=== PATIENT | female | born 1965 | race Caucasian/White ===

== ENCOUNTER 2017-10-31 08:07 | Emergency (ER) | payer OTHER ==
[2017-10-31 08:28] VITALS: BP 191/112
[2017-10-31] MEDS ORDERED: Acetaminophen TAB* 325 MG PO ONE (08:28)
[2017-10-31] MEDS ORDERED: Ondansetron ODT TAB* 4 MG PO ONE (08:28)
[2017-10-31] MEDS ORDERED: Meclizine TAB* 12.5 MG PO ONE (08:28)
[2017-10-31] MEDS ORDERED: LORazepam TAB(*) 1 MG PO ONE (08:31)
--- NOTE | 2017-10-31 09:19 | UC ---
Tiara Jain Julia, scribed for Ramy Cardozo MD on 10/31/17 at 0813 . General HPI - HPI Summary HPI Summary: This patient is a 51 year old F presenting to [facility] with a chief complaint of temporal and occipital headache and dizziness since 10/21/17. Symptoms aggravated by lights. Patient reports diaphoresis, sinus infection, epitaxies, intermittent ear pain, and generalized weakness for the past two weeks. Pt reports vertigo like symptoms with sinus infections. Pt reports nausea with movement. Pt takes Meclizine for previous similar symptoms. Pt usually takes medication for HTN but has not since 10/21/17 due to vertigo like symptoms. - History of Current Complaint Stated Complaint: dizziness, and sinus congestion Hx Obtained From: Patient Onset/Duration: Lasting Days, Lasting Weeks Timing: Constant Pain Location at: head and sinuses Character: dizziness Aggravating: lights Associated Signs & Symptoms: Positive: Other - diaphoresis, sinus infection, epitaxies, intermittent ear pain, and generalized weakness Similar Episode/Dx as: vertigo - Allergy/Home Medications Allergies/Adverse Reactions: Allergies Allergy/AdvReac Type Severity Reaction Status Date / Time Sulfa Antibiotics Allergy Unknown Hives Verified 02/06/16 12:16 Iodine Allergy Swelling/SHORT Verified 02/06/16 12:16 OF BREATH Home Medications: Home Medications Propranolol TAB* [Inderal TAB*] 10/31/17 [History] PMH/Surg Hx/FS Hx/Imm Hx Cardiovascular History: Hypertension - Surgical History Surgical History: Yes Surgery Procedure, Year, and Place: GALLBLADDER ,CSECTION [id number],HYSTERECTOMY ,TUBAL; ear tubes; tonsilectomy - Family History Known Family History: Positive: Hypertension, Diabetes, Other - [place] - Social History Alcohol Use: Occasionally Substance Use Type: None Smoking Status (MU): Never Smoked Tobacco Have You Smoked in the Last Year: No Review of Systems Constitutional: Fatigue Skin: Other - diaphoresis ENT: Epistaxis, Ear Ache, Sinus Congestion - infection, Sinus Pain/Tenderness Neurological: Headache, Other - dizziness All Other Systems Reviewed And Are Negative: Yes Physical Exam Triage Information Reviewed: Yes Vital Signs: Initial Vital Signs Temp 97.6 F 10/31/17 08:12 Pulse 106 10/31/17 08:12 Resp 22 10/31/17 08:12 BP 191/112 10/31/17 08:12 Pulse Ox 98 10/31/17 08:12 Vital Signs Reviewed: Yes - Additional Comments General: well-appearing, moderate pain distress secondary to dizziness Skin: warm, color reflects adequate perfusion, dry Head: normal Eyes: EOMI, MARIBELL ENT: oral pharynx is moist, L serous otitis media Neck: supple, nontender Respiratory: CTA, breath sounds present Cardiovascular: Regular rhythm with tachycardia rate Abdomen: soft, nontender Bowel: present Musculoskeletal: normal, strength/ROM intact Neurological: normal, sensory/motor intact, A&O x3, no focal neurological deficit Psychological: affect/mood appropriate Diagnostics - EKG Cardiac Rate: Tachycardia Cardiac Rhythm: Sinus: Normal - 102 BPM at 8:33 Ectopy: None ST Segment: Normal Course/Dx - Course Course Of Treatment: INITIAL PRESENTATION WAS SINUSITIS AND VERTIGO THEREFORE, NO EKG TAKEN UPON ARRIVAL. EKG ORDERED AFTER EVAL WHICH INCLUDED HYPERTENSION TACHYCARDIA. DISCUSSED GOING TO THE ED FOR FURTEHR EVALUATION AND TREATMENT. POSTERIOR CVA IS IN THE DDX; THIS WAS DISCUSSED WITH THE PATIENT. SHE WILL GO TO THE ED BY AMBULANCE. - Differential Dx - Multi-Symptom Provider Diagnoses: DIZZINESS. HEADACHE. HYPERTENSION. LEFT SEROUS OTITIS MEDIA Discharge - Discharge Plan Condition: Fair Disposition: TRANS HIGHER LVL OF CARE FAC Patient Education Materials: Acute Headache (ED), Hypertension (ED), Dizziness (ED) Referrals: Ana Maria Cormier MD [Primary Care Provider] - Additional Instructions: GO DIRECTLY TO THE EMERGENCY DEPARTMENT FOR FURTHER EVALUATION AND CARE FOR YOUR HEADACHE, DIZZINESS AND HYPERTENSION. The documentation as recorded by the Tiara no Julia accurately reflects the service I personally performed and the decisions made by , Ramy Cardozo MD.
== END 2017-10-31 09:44 | disposition short-term general hospital (02) ==
LOC: UCEAST 08:07
DX: R42 Dizziness and giddiness (principal); R51 Headache; H65.92 Unspecified nonsuppurative otitis media, left ear; I10 Essential (primary) hypertension; Z88.2 Allergy status to sulfonamides
CPT/HCPCS: 93005; 99213; A9270-GY; G0463

== ENCOUNTER 2017-10-31 10:00 | Observation (INO) | payer OTHER ==
[2017-10-31] MEDS ORDERED: NS 0.9% 1000 ML* 1,000 ML IV ONE (10:29)
[2017-10-31] MEDS ORDERED: LORazepam INJ* 2 MG/ML 1 ML VIAL IV ONE (10:29)
[2017-10-31] MEDS ORDERED: Meclizine TAB* 12.5 MG PO ONE (10:29)
--- NOTE | 2017-10-31 11:13 | RAD ---
Indication: Dizziness. CT of the brain was performed without IV contrast. Ventricular structures are midline. No midline shift is noted. The extra-axial spaces are unremarkable. There is no evidence of intracranial mass or hemorrhage. No other high or low density lesions identified. Mastoid air cells and paranasal sinuses are unremarkable. IMPRESSION: There is no evidence of intracranial mass or hemorrhage noted.
[2017-10-31 11:27] LABS: ABS Basophils 0.1 10^3/ul (0-0.2); ABS Eosinophils 0.2 10^3/ul (0-0.6); ABS Lymphocytes 2.1 10^3/ul (1.0-4.8); ABS Monocytes 0.6 10^3/ul (0-0.8); ABS Neutrophils 5.6 10^3/ul (1.5-7.7); ABS Nucleated RBC 0 10^3/ul; Eosinophil % 2.3 % (0-6); Hematocrit 40 % (35-47); Hemoglobin 13.6 g/dl (12.0-16.0); Lymphocyte % 24.2 % (25-47); Mean Corpuscular HGB Conc 34 g/dl (31-36); Mean Corpuscular Hemoglobin 30 pg (27-31); Mean Corpuscular Volume 88 fL (80-97); Mean Platelet Volume 8 um3 (7.4-10.4); Nucleated Red Blood Cells % 0.1; Platelet Count 331 10^3/ul (150-450); Red Blood Count 4.56 10^6/ul (4.0-5.4); Red Cell Distribution Width 14 % (10.5-15); White Blood Count 8.6 10^3/ul (3.5-10.8)
[2017-10-31 11:44] LABS: EGFR Non-African American 70.5 (>60)
--- NOTE | 2017-10-31 12:35 | RAD ---
INDICATION: Dizziness COMPARISON: January 05, 2012 TECHNIQUE: PA and lateral dual-energy views were obtained. FINDINGS: Bones/Soft Tissues: There are no acute bony findings. Cardiomediastinal: The cardiomediastinal silhouette is normal. Lungs: There are no infiltrates. Pleura: There are no pleural effusions. Other: None IMPRESSION: NO ACTIVE DISEASE.
[2017-10-31] MEDS ORDERED: Ketorolac INJ* 30 MG/ML 1 ML VIAL IV PUSH ONE (12:43)
[2017-10-31] MEDS ORDERED: Amoxicillin/Clavulanate TAB* 875 MG PO ONE (12:43)
[2017-10-31] MEDS ORDERED: Diazepam SYRINGE* 5 MG/ML 2 ML SYRINGE (10 MG total) IV ONE (13:21)
[2017-10-31] MEDS ORDERED: Metoclopramide IV* 5 MG/ML 2 ML VIAL IV ONE (13:21)
[2017-10-31] MEDS ORDERED: diPHENhydraMINE IV* 50 MG in NS 0.9% 50 ML* 50 ML IVPB ONE (13:21)
[2017-10-31] MEDS ORDERED: Diazepam INJ (NF) 5 MG/ML 10 ML VIAL (50 MG TOTAL) IV ONE (14:00)
[2017-10-31] MEDS ORDERED: LORazepam TAB(*) 1 MG PO PRN (14:35)
[2017-10-31] MEDS ORDERED: hydrALAZINE IV* 20 MG/ML VIAL IV SLOW PU PRN (14:55)
[2017-10-31] MEDS ORDERED: Ondansetron TAB* 4 MG PO PRN (14:56)
[2017-10-31] MEDS: BuPROPion XL* 300 MG TAB.XL PO SCH (17:25)
--- NOTE | 2017-10-31 17:51 | ED ---
Dung Jain Angela, scribed for Mulugeta Brito MD on 10/31/17 at 1020 . Dizziness - HPI Summary HPI Summary: This pt is a 51 y/o female presenting to [facility] c/o dizziness and headache since 10/28/17. Pt reports associated symptoms of headache , nausea, epistaxis, feeling cold, diaphoresis, sinus pain, and mild SOB. She rates her headache 8/10 in severity and located on the bottom of her head. Pt denies fever, sore throat, rhinorrhea, chest pain. Pt reports she has not taken any antihypertensive medications because she was sick. - History Of Current Complaint Stated Complaint: DIZZINESS-SENT FROM Hx Obtained From: Patient Onset/Duration: Still Present Timing: Days Severity Currently: Severe - 8 Character: Dizzy Aggravating Factor(s): Nothing Alleviating Factor(s): Nothing Associated Signs And Symptoms: Positive: Nausea, Diaphoresis, SOB - mild, Chills , Other: - POS: headache, epistaxis, sinus pain.. Negative: Vomiting, Chest Pain, Fever - Allergies/Home Medications Allergies/Adverse Reactions: Allergies Allergy/AdvReac Type Severity Reaction Status Date / Time Sulfa Antibiotics Allergy Unknown Hives Verified 02/06/16 12:16 Iodine Allergy Swelling/SHORT Verified 02/06/16 12:16 OF BREATH Home Medications: Home Medications Beclomethasone Dipropionate (N [Qnasl] 80 mcg NASAL DAILY 10/31/17 [History Confirmed 10/31/17] BuPROPion XL* [Bupropion XL*] 300 mg PO DAILY 10/31/17 [History Confirmed ] Budesonide/Formote 160/4.5(NF) [Symbicort 160/4.5 (NF)] 2 puff INH BID 10/31/17 [History Confirmed 10/31/17] Montelukast Sodium TAB* [Singulair TAB*] 10 mg PO DAILY 10/31/17 [History Confirmed 10/31/17] Phentermine HCl [Adipex-P] 37.5 mg PO BID 10/31/17 [History Confirmed 10/31/17] PMH/Surg Hx/FS Hx/Imm Hx Endocrine/Hematology History: Denies: Hx Diabetes, Hx Thyroid Disease Cardiovascular History: Reports: Hx Hypertension Denies: Hx Pacemaker/ICD Respiratory History: Denies: Hx Asthma, Hx Chronic Obstructive Pulmonary Disease (COPD) GI History: Denies: Hx Ulcer History: Denies: Hx Renal Disease Sensory History: Denies: Hx Hearing Aid Psychiatric History: Reports: Hx Panic Disorder - PTSD/ANXIETY - Cancer History Hx Chemotherapy: No Hx Radiation Therapy: No - Surgical History Surgery Procedure, Year, and Place: GALLBLADDER ,CSECTION [id number],HYSTERECTOMY ,TUBAL; ear tubes; tonsilectomy - Immunization History Date of Tetanus Vaccine: pt states unsure Date of Influenza Vaccine: none Infectious Disease History: Denies: Hx Clostridium Difficile, Hx Hepatitis, Hx Human Immunodeficiency Virus (HIV), Hx of Known/Suspected MRSA, Hx Shingles, Hx Tuberculosis, Hx Known/ Suspected VRE, Hx Known/Suspected VRSA, History Other Infectious Disease, Traveled Outside the [place] in Last 30 Days - Family History Known Family History: Positive: Hypertension, Diabetes, Other - [place] - Social History Alcohol Use: Occasionally Substance Use Type: Reports: None Smoking Status (MU): Never Smoked Tobacco Have You Smoked in the Last Year: No Review of Systems Positive: Chills, Skin Diaphoresis. Negative: Fever ENT: Other - sinus tenderness Positive: Epistaxis. Negative: Sore Throat, Nasal Discharge Negative: Chest Pain Positive: Shortness Of Breath - mild Positive: Nausea. Negative: Vomiting Neurological: Other - POS: dizziness Positive: Headache All Other Systems Reviewed And Are Negative: Yes Physical Exam - Summary Physical Exam Summary: VITAL SIGNS: Reviewed. GENERAL: Patient is an obese female who is lying comfortable in the stretcher. Patient is not in any acute distress. HEAD AND FACE: No signs of trauma. No ecchymosis, hematomas or skull depressions. Pt has maxillary and ethmoid sinus tenderness. EYES: PERRLA, EOMI x 2, No injected conjunctiva, no nystagmus. No photophobia. EARS: Hearing grossly intact. Ear canals and tympanic membranes are within normal limits. MOUTH: Oropharynx within normal limits. NECK: Supple, trachea is midline, no adenopathy, no JVD, no carotid bruit, no c- spine tenderness, neck with full ROM. No meningeal signs, no Kernig's or brudzinskis signs. CHEST: Symmetric, no tenderness at palpation LUNGS: Clear to auscultation bilaterally. No wheezing or crackles. CVS: Regular rate and rhythm, S1 and S2 present, no murmurs or gallops appreciated. ABDOMEN: Soft, non-tender. No signs of distention. No rebound no guarding, and no masses palpated. Bowel sounds are normal. EXTREMITIES: FROM in all major joints, no edema, no cyanosis or clubbing. NEURO: Alert and oriented x 3. No acute neurological deficits. Speech is normal and follows commands. SKIN: Dry and warm GCS: 15 Triage Information Reviewed: Yes Vital Signs On Initial Exam: Initial Vitals Temp Pulse Resp BP Pulse Ox 99.1 F 96 12 164/116 98 10/31/17 10:19 10/31/17 10:19 10/31/17 10:19 10/31/17 10:19 10/31/17 10:19 Vital Signs Reviewed: Yes Diagnostics - Vital Signs Vital Signs Temp Pulse Resp BP Pulse Ox 10/31/17 15:28 98.6 F 90 16 141/82 95 10/31/17 15:00 82 141/82 97 10/31/17 14:30 100 150/92 96 10/31/17 14:26 98 143/88 97 10/31/17 14:00 95 97 10/31/17 13:58 22 10/31/17 13:41 118 162/102 10/31/17 13:33 105 162/102 96 10/31/17 13:32 82 98 10/31/17 13:30 138/82 10/31/17 13:00 154/91 10/31/17 12:46 159/88 10/31/17 11:50 93 97 10/31/17 11:30 15 139/67 10/31/17 11:19 14 10/31/17 11:00 94 16 145/79 98 10/31/17 10:30 91 12 150/124 97 10/31/17 10:27 95 15 146/126 97 10/31/17 10:24 95 11 97 10/31/17 10:19 99.1 F 96 12 164/116 98 - Laboratory Lab Results: Lab Results 10/31/17 10/31/17 10/31/17 Range/Units 11:12 11:12 11:12 WBC 8.6 (3.5-10.8) 10^3/ul RBC 4.56 (4.0-5.4) 10^6/ul Hgb 13.6 (12.0-16.0) g/dl Hct 40 (35-47) % MCV 88 (80-97) fL MCH 30 (27-31) pg MCHC 34 (31-36) g/dl RDW 14 (10.5-15) % Plt Count 331 (150-450) 10^3/ul MPV 8 (7.4-10.4) um3 Neut % (Auto) 65.3 (38-83) % Lymph % (Auto) 24.2 L (25-47) % Weber % (Auto) 7.3 (1-9) % Eos % (Auto) 2.3 (0-6) % Baso % (Auto) 0.9 (0-2) % Absolute Neuts (auto) 5.6 (1.5-7.7) 10^3/ul Absolute Lymphs (auto) 2.1 (1.0-4.8) 10^3/ul Absolute Monos (auto) 0.6 (0-0.8) 10^3/ul Absolute Eos (auto) 0.2 (0-0.6) 10^3/ul Absolute Basos (auto) 0.1 (0-0.2) 10^3/ul Absolute Nucleated RBC 0 10^3/ul Nucleated RBC % 0.1 Sodium 138 (133-145) mmol/L Potassium 3.9 (3.5-5.0) mmol/L Chloride 105 (101-111) mmol/L Carbon Dioxide 27 (22-32) mmol/L Anion Gap 6 (2-11) mmol/L BUN 12 (6-24) mg/dL Creatinine 0.85 (0.51-0.95) mg/dL Est GFR ( Amer) 90.7 (>60) Est GFR (Non-Af Amer) 70.5 (>60) BUN/Creatinine Ratio 14.1 (8-20) Glucose 97 (70-100) mg/dL Lactic Acid (0.5-2.0) mmol/L Calcium 10.0 (8.6-10.3) mg/dL Magnesium 2.0 (1.9-2.7) mg/dL Total Bilirubin 0.40 (0.2-1.0) mg/dL AST 29 (13-39) U/L ALT 40 (7-52) U/L Alkaline Phosphatase 87 (34-104) U/L Total Creatine Kinase 58 (10-223) U/L Troponin I 0.00 (<0.04) ng/mL C-Reactive Protein 7.50 H (< 5.00) mg/L B-Natriuretic Peptide 527 H ( - 100) pg/mL Total Protein 7.5 (6.4-8.9) g/dL Albumin 4.2 (3.2-5.2) g/dL Globulin 3.3 (2-4) g/dL Albumin/Globulin Ratio 1.3 (1-3) TSH 4.68 (0.34-5.60) mcIU/mL Serum Alcohol < 10 (<10) mg/dL Influenza A (Rapid) (Negative) Influenza B (Rapid) (Negative) 10/31/17 10/31/17 Range/Units 11:12 11:56 WBC (3.5-10.8) 10^3/ul RBC (4.0-5.4) 10^6/ul Hgb (12.0-16.0) g/dl Hct (35-47) % MCV (80-97) fL MCH (27-31) pg MCHC (31-36) g/dl RDW (10.5-15) % Plt Count (150-450) 10^3/ul MPV (7.4-10.4) um3 Neut % (Auto) (38-83) % Lymph % (Auto) (25-47) % Weber % (Auto) (1-9) % Eos % (Auto) (0-6) % Baso % (Auto) (0-2) % Absolute Neuts (auto) (1.5-7.7) 10^3/ul Absolute Lymphs (auto) (1.0-4.8) 10^3/ul Absolute Monos (auto) (0-0.8) 10^3/ul Absolute Eos (auto) (0-0.6) 10^3/ul Absolute Basos (auto) (0-0.2) 10^3/ul Absolute Nucleated RBC 10^3/ul Nucleated RBC % Sodium (133-145) mmol/L Potassium (3.5-5.0) mmol/L Chloride (101-111) mmol/L Carbon Dioxide (22-32) mmol/L Anion Gap (2-11) mmol/L BUN (6-24) mg/dL Creatinine (0.51-0.95) mg/dL Est GFR ( Amer) (>60) Est GFR (Non-Af Amer) (>60) BUN/Creatinine Ratio (8-20) Glucose (70-100) mg/dL Lactic Acid 0.8 (0.5-2.0) mmol/L Calcium (8.6-10.3) mg/dL Magnesium (1.9-2.7) mg/dL Total Bilirubin (0.2-1.0) mg/dL AST (13-39) U/L ALT (7-52) U/L Alkaline Phosphatase (34-104) U/L Total Creatine Kinase (10-223) U/L Troponin I (<0.04) ng/mL C-Reactive Protein (< 5.00) mg/L B-Natriuretic Peptide ( - 100) pg/mL Total Protein (6.4-8.9) g/dL Albumin (3.2-5.2) g/dL Globulin (2-4) g/dL Albumin/Globulin Ratio (1-3) TSH (0.34-5.60) mcIU/mL Serum Alcohol (<10) mg/dL Influenza A (Rapid) Negative (Negative) Influenza B (Rapid) Negative (Negative) Result Diagrams: 10/31/17 11:12 10/31/17 11:12 Lab Statement: Any lab studies that have been ordered have been reviewed, and results considered in the medical decision making process. - Radiology chest XR Xray Interpretation: No Acute Changes - IMPRESSION: No active disease. Dr. Brito has reviewed this radiology report. Radiology Interpretation Completed By: Radiologist - CT Brain CT CT Interpretation: No Acute Changes - IMPRESSION: there is no evidence of intracranial mass or hemorrhage noted. Dr. Brito has reviewed this radiology report. CT Interpretation Completed By: Radiologist - EKG 11:29 Cardiac Rate: NL EKG Rhythm: Sinus Rhythm - at 89 bpm EKG Interpretation: No ST elevation. Q wave in II and III. Re-Evaluation - Re-Evaluation First Eval Re-Evaluation Time: 12:40 Comment: I reviewed XR, CT, and lab results with the pt. Dizzy Course/Dx - Course Course Of Treatment: This pt is a 51 y/o female presenting to [facility] via EMS from [facility] c/o dizziness and headache since 10/28/17. Pt reports associated symptoms of headache, nausea, epistaxis, feeling cold, diaphoresis, sinus pain, and mild SOB. She rates her headache 8/10 in severity and located on the bottom of her head. Pt denies fever, sore throat, rhinorrhea, chest pain. Pt reports she has not taken any antihypertensive medications because she was sick. Test results without any significant abnormalities except for CRP of 7.5 and BNP of 527. Influenza A and B are negative. Chest XR is negative for acute pathology: Head CT shows there is no evidence of intracranial mass or hemorrhage noted. I believe her symptoms are secondary to sinusitis as well as her vertigo. The pt was given Ativan for her anxiety and her blood pressure normalized. I was about to discharge the pt home because she reported she felt better. As soon as she stood up next to her bed she felt very dizzy. She continues to have dizziness, which she describes as room spinning around her. Pt reports that when she lays down and closes her eyes, her dizziness improves. In the physical exam she has no nystagmus, therefore I believe the pt has peripheral dizziness. I additionally I gave the pt valium but her symptoms continued. I discussed the pt s case with Dr. Argueta, hospitalist, who has accepted the pt for admission. Pt is hemodynamically stable, alert and oriented x3. - Diagnoses Differential Diagnosis/HQI/PQRI: Benign Paroxysmal Positional Vertigo, CVA, Meniere's Disease, Transient Ischemic Attack, Vasovagal Reaction Provider Diagnoses: Intractable vertigo, Acute sinusitis - Provider Notifications Discussed Care Of Patient With: Eliu Argueta Time Discussed With Above Provider: 13:26 Instructed by Provider To: Other - I discussed pt care with Dr. Argueta, hospitalist, who has agreed to admit the pt. Discharge - Discharge Plan Condition: Stable Disposition: ADMITTED TO [facility] documentation as recorded by the Dung no Angela accurately reflects the service I personally performed and the decisions made by me, Mulugeta Brito MD.
--- NOTE | 2017-10-31 21:03 | HP ---
HISTORY AND PHYSICAL: DATE OF ADMISSION: 10/31/17 ADMITTING PROVIDER: Eliu Argueta MD PRIMARY CARE PROVIDER: Dr. Jena Cormier of [place]. CHIEF COMPLAINT: Dizziness with vertigo for 4 days, nausea, headaches, sinus pressure, inability to ambulate, hypertension. HISTORY OF PRESENT ILLNESS: Rima Suarez is a 51-year-old female with past medical history of hypertension, allergies, PTSD, anxiety, depression, also morbid obesity, who presents with 4 days of vertigo that seem to be getting better, has been taking meclizine for the last 3 days, but then it got worse again and presented to [facility] with blood pressures 199/112, additionally has had a headache, nausea, but no vomiting. Denies any current shortness of breath. Has been feeling hot, alternating with cold. Feels pressure in her front sinuses and bilateral ears. She had stopped taking her Ativan 1 mg b.i.d. versus t.i.d., which she takes for PTSD as she was afraid that it might make her feel worse. She upon presentation to the ED, had a CT head which was negative, chest x-ray which is negative, lab work which is relatively unremarkable except for a BNP which is 527. She got Valium, ketorolac , and Zofran in the ED, but continued to feel like she could not ambulate. She is being admitted for inability to ambulate in the setting of vertigo and recent hypertensive urgency. PAST MEDICAL HISTORY: Anxiety, depression, PTSD, hypertension, allergies versus ?asthma. MEDICATIONS: Include: 1. Propranolol 40 mg p.o. daily. 2. Singulair 10 mg p.o. daily. 3. Ativan 1 mg p.o. t.i.d. to b.i.d. p.r.n. 4. Beclomethasone dipropionate 80 mcg nasal daily. 5. Phentermine HCL 37.5 mg p.o. b.i.d. 6. Bupropion 300 mg p.o. daily. 7. Symbicort 2 puffs inhaled b.i.d. 8. Meclizine 25 mg p.o. t.i.d. ALLERGIES: SULFA ANTIBIOTICS gives hives, IODINE gives swelling and shortness of breath. FAMILY HISTORY: Maternal grandmother with breast cancer. Mother with lung cancer. Maternal grandfather with colon cancer. SOCIAL HISTORY: The patient helps to make medical devices. She is a never smoker, never drinker. No drug use. She wishes her son, Wily Hare and daughter Isamar Hare to be her medical surrogate decision makers. She is a full code. REVIEW OF SYSTEMS: The patient also attests to 2 weeks of frontal sinus and ear pressure pain and 3 weeks of bloody (scant, noticed with tissues) nose daily , but not perfused. She has a history of 2 cautery procedures for nose bleed in her childhood. PHYSICAL EXAMINATION GENERAL: The patient is slightly uncomfortable appearing in the hospital bed. VITAL SIGNS: Heart rate is 96; blood pressure here initially 164/116, before 199/112 at [facility], currently 150/92; satting 96% to 98% on room air; temperature 99.1. HEENT: Normocephalic, atraumatic. Pupils equal, round, reactive to light. No cervical lymphadenopathy. No oropharynx lesions. NECK: Supple. PULMONARY: Clear to auscultation bilaterally with no wheezing, rales, or rhonchi. CARDIOVASCULAR: Regular rate and rhythm. No murmurs, rubs, or gallops. ABDOMEN: Soft, nontender, nondistended. Morbidly obese. No rebound, no guarding. No Paul's sign. EXTREMITIES: Warm and well perfused. No peripheral edema. NEUROLOGICAL: Moving all extremities. Cranial nerves II through XII intact. SKIN: No lesions, no rashes. LABORATORY DATA: White count 8.6, hemoglobin 13.6, hematocrit 40, platelets 331,000. Sodium 138, potassium 3.9, chloride 105, carbon dioxide 27, glucose 97 , magnesium 2.0, AST 29, ALT 40, alk phos 87, BNP 527, CRP 7.50, TSH 4.68. Influenza swabs A and B both negative. Troponin 0.00. IMAGING: Chest x-ray, no acute process. CT of head, no acute process. EKG with Q-wave in 3, borderline Q-wave in 2, unchanged. Poor R-wave progression. No ST changes. ASSESSMENT AND PLAN: Rima Suarez is a 51-year-old female with past medical history of anxiety, depression, posttraumatic stress disorder, nosebleeds, vertigo, who is presenting with hypertensive urgency 199/112 at urgent care. 4 days of vertigo and inability to ambulate despite therapies in the ED which included meclizine, Valium and ketorolac and Benadryl. The patient will be admitted to observation status to monitor her blood pressure, continue meclizine , get Physical Therapy to work with her. Unable in ER to do a full David-Hallpike maneuver test. No current evidence of nystagmus on exam. Continue Reglan p.o. p.r.n. for nausea. Continue her Ativan which she notably stopped over the weekend that may be contributing to some of her worsening feelings given her chronic use of 1 b.i.d. to t.i.d. We will continue her home propranolol 40 mg daily, add hydralazine 10 mg IV q.2 hours p.r.n. for blood pressures above 180. Continue her bupropion at 300 mg for depression and her inhalers. She is a full code and medical surrogates are son, Wily Hare and Isamar Hare, her daughter. She can eat a regular diet. [id number]/[facility] #: [id number] GEOVANNI
[2017-10-31] MEDS: Meclizine TAB* 12.5 MG PO SCH (21:33)
[2017-10-31] MEDS: PHENTERMINE HCL 37.5 MG PO SCH (21:34)
[2017-11-01] MEDS: Meclizine TAB* 12.5 MG PO SCH ×2 (06:26→14:15)
[2017-11-01] MEDS: PHENTERMINE HCL 37.5 MG PO SCH (07:40)
[2017-11-01 07:43] VITALS: BP 138/72
[2017-11-01] MEDS ORDERED: Montelukast Sodium TAB* 10 MG PO SCH (09:00)
[2017-11-01] MEDS: BuPROPion XL* 300 MG TAB.XL PO SCH (09:33)
--- NOTE | 2017-11-02 04:11 | DS ---
DISCHARGE SUMMARY: DATE OF ADMISSION: 10/31/17 DATE OF DISCHARGE: 11/01/17 ADMITTING AND ATTENDING PHYSICIAN: Eliu Argueta MD PRIMARY CARE PROVIDER: Dr. Jena Cormier of [place]. CHIEF COMPLAINT: Dizziness with vertigo x4 days, nausea, headaches, sinus pressure, ear pain, hypertension. PRINCIPAL DIAGNOSES: 1. Otitis media. 2. Hypertensive urgency. 3. Nose bleed. 4. Vertigo. HISTORY OF PRESENT ILLNESS AND HOSPITAL COURSE: Rima Suarez is a 51-year-old female with past medical history of hypertension, allergies, PTSD, anxiety, depression, morbid obesity, nose bleeds as a child, status post 2 cautery procedures, who presents with 4 days of vertigo, had been taking her home meclizine for 3 days with some stabilization but then she states it got worse again. She presented to [facility] and was noted have blood pressures 199/ 112. This was associated with headache, nausea, with no vomiting, nose bleeds for 3 weeks, though not profuse. She had a history of what she describes as weekly sinus infections a year prior and had followed up with ENT/asthma specialist and got an imaging about 2 months ago. Upon presentation to the ED, she had CT head which was negative, chest x-ray which was negative, lab work which was unremarkable except for a BNP, which is 527. She received Valium, ketorolac, and Zofran and had gotten her meclizine prior but still did not feel safe for ambulation. She was admitted to observation status for vertigo, inability to ambulate, recent hypertensive urgency. She saw Physical Therapy next day, was continued on her Ativan 1 mg p.o. b.i.d. to t.i.d., which she had stopped over the weekend along with Zofran p.r.n. Her symptoms, though not resolving, were improved and she was able to ambulate with physical therapy. On evaluation of her bilateral ears, she had slight effusion in the inferior aspect bilaterally. No bleed on CT brain. There was no mention of any abnormality of the mastoid and paranasal sinuses. She is being discharged with followup with her primary care, Dr. Cormier, and also recommended to follow up with Ear, Nose, and Throat for her nose bleeds. Notably, her hemoglobin on admission was 13.6. Vital signs were stable and she describes what sounds like not a very profuse nose bleed with trace bleeding when she blows her nose. MEDICATIONS: Include: 1. Augmentin 875 mg p.o. b.i.d. for 5 days. 2. QNASL 80 mcg nasal daily. 3. Symbicort 2 puffs inhaled b.i.d. 4. Bupropion 300 mg p.o. daily. 5. Ativan 1 mg p.o. b.i.d. to t.i.d. p.r.n. 6. Meclizine 25 mg p.o. t.i.d. 7. Singulair 10 mg p.o. daily. 8. Phentermine HCL (Adipex-P) 37.5 mg p.o. b.i.d. 9. Propranolol 40 mg p.o. daily. ACTIVITY LEVEL: No restrictions. DISCHARGE DIET: No restrictions. FOLLOWUP: Please follow up with Dr. Jena Cormier on 11/04/17 at 03:30 p.m. and with her Ear, Nose, and Throat specialist if nose bleeds continue. TIME SPENT ON DISCHARGE: 30 minutes. [id number]/CPS #: [id number] MTDD
== END 2017-11-01 15:00 | disposition home or self-care (01) ==
LOC: ED 10:00 → MED 15:42
PROVIDERS: ADMIT Internal Medicine; ATTEND Internal Medicine
DX: H66.90 Otitis media, unspecified, unspecified ear (principal); R42 Dizziness and giddiness; R11.0 Nausea; R51 Headache; H92.09 Otalgia, unspecified ear; I16.0 Hypertensive urgency; J01.90 Acute sinusitis, unspecified; R06.02 Shortness of breath; R04.0 Epistaxis
CPT/HCPCS: 36415; 70450; 71046; 80053; 80320; 82550; 83605; 83735; 83880; 84443; 84484; 85025; 86140; 87502; 93005; 99285; A9270-GY; G0378; G0480; J1200; J1885; J2060; J2765; J3360

== ENCOUNTER 2019-05-14 07:30 | Emergency (ER) | payer OTHER ==
--- NOTE | 2019-05-14 07:35 | UC ---
Abdominal Pain Female HPI - HPI Summary HPI Summary: 53-year-old woman comes in with a chief complaint of right-sided abdominal and flank pain. Started 3 this morning. Pain is severe. Patient is nauseous and she's been vomiting. She tried a bowel movement but she couldn't. She is unable to make the pain worse or better. She is diaphoretic. - History of Current Complaint Stated Complaint: ABD/BACK PAIN Time Seen by Provider: 05/14/19 07:34 Allergies/Adverse Reactions: Allergies Allergy/AdvReac Type Severity Reaction Status Date / Time Sulfa (Sulfonamide Allergy Severe Unknown Verified 05/14/19 07:39 Antibiotics) Reaction Details iodine Allergy Unknown Verified 05/14/19 07:39 Reaction Details iodixanol [From Visipaque] Allergy Unknown Verified 01/24/19 15:51 Reaction Details PMH/Surg Hx/FS Hx/Imm Hx Previously Healthy: Yes Cardiovascular History: Hypertension - Surgical History Surgical History: Yes Surgery Procedure, Year, and Place: GALLBLADDER ,CSECTION [id number],HYSTERECTOMY ,TUBAL; ear tubes; tonsilectomy - Family History Known Family History: Positive: Hypertension, Diabetes, Other - [place] - Social History Alcohol Use: Occasionally Substance Use Type: None Smoking Status (MU): Never Smoked Tobacco Have You Smoked in the Last Year: No Review of Systems All Other Systems Reviewed And Are Negative: Yes Constitutional: Positive: Other - see hpi Skin: Positive: Negative Eyes: Positive: Negative ENT: Positive: Negative Respiratory: Positive: Negative Cardiovascular: Positive: Negative Gastrointestinal: Positive: Abdominal Pain, Vomiting, Nausea Motor: Positive: Negative Neurovascular: Positive: Negative Musculoskeletal: Positive: Negative Neurological: Positive: Negative Psychological: Positive: Negative Is Patient Immunocompromised?: No Physical Exam Triage Information Reviewed: Yes Appearance: Well-Nourished, Ill-Appearing - mild, Pain Distress - moderate/ severe Vital Signs Reviewed: Yes Eye Exam: Normal Eyes: Positive: Conjunctiva Clear Neck: Positive: Supple Respiratory: Positive: Lungs clear, Normal breath sounds, No respiratory distress Abdomen Description: Positive: Other: - tender rt Bowel Sounds: Positive: Present Musculoskeletal: Positive: Strength Intact, ROM Intact Neurological: Positive: Alert, Muscle Tone Normal Psychological: Positive: Age Appropriate Behavior Skin Exam: Normal Abd Pain Female Course/Dx - Course Course Of Treatment: Due to the severity of the pain I recommended transport to the emergency department by ambulance. The patient declined transfer by ambulance and her sister is here who will take her by POV. - Differential Dx/Diagnosis Provider Diagnosis: Right sided abdominal pain, Right flank pain Discharge - Sign-Out/Discharge Documenting (check all that apply): Patient Departure All imaging exams completed and their final reports reviewed: No Studies - Discharge Plan Condition: Stable Disposition: HOME-RECOMMEND TO ED Referrals: Ana Maria Cormier MD [Primary Care Provider] - - Billing Disposition and Condition Condition: STABLE Disposition: Home-Recommend to ED
--- OUTSIDE RECORDS SUMMARY | 2019-05-14 07:36 | XMS REPORT | Continuity of Care Document ---
:1965 External Reference #:[id number] Author Name Nicolle Rivera Care Team Providers Name Role Phone Ana Maria Cormier MD Primary Care Physician Unavailable Payers Date Identification Numbers Payment Provider Subscriber Policy Number: [id number] [facility] Candy Suarez Group Number: [id number] [address] [address] PayID: [id number] [place] [address] Expires: 2016 Policy Number: [id number] [facility] MARY KAY Suarez PayID: [id number] [address] [address] [place] [address] Family History Date Family Member(s) Observation Comments General Chronic Obstructive Pulmonary Disease (COPD) General Cancer Mother due to Lung Cancer () Siblings 1 Social History Type Date Description Comments Sex Unknown Marital Status Lives With Son Occupation Build medical equipment Tobacco Use Start: Unknown Never Smoked Cigarettes Smoking Status Reviewed: 04/19/19 Never Smoked Cigarettes ETOH Use Rarely consumes alcohol Recreational Drug Use Never Used Drugs Tobacco Use Start: Unknown Patient has never smoked Exercise Type/Frequency Does not exercise Allergies, Adverse Reactions, Alerts Active Allergies Reaction Severity Comments Date Sulfa 01/29/2019 IV Contrast 01/29/2019 Medications Active Medications SIG Qnty Indications Ordering Provider Date Fluoxetine HCL Take One Capsule Unknown 20mg By Mouth Twice A Capsules Day Montelukast Sodium Take One Tablet By Unknown 10mg Mouth One Time Tablets Daily Propranolol HCL Take One Tablet By Unknown 40mg Mouth Every Day Tablets Desloratadine Take One Tablet By Unknown 5mg Tablets Mouth Every Day Loratadine once a day for Unknown 10mg Capsules allergies as needed Lorazepam 1 tab upto 3x a Unknown 1mg Tablets day Black Cohosh 540mg 1x day Unknown Vital Signs Date Vital Result Comment 04/19/2019 2:13pm Height 70 inches 5'10" Heart Rate 82 /min BP Systolic 126 mmHg BP Diastolic 82 mmHg Respiratory Rate 18 /min O2 % BldC Oximetry 94 % 01/29/2019 7:37am Height 70 inches 5'10" Heart Rate 94 /min BP Systolic Sitting 124 mmHg Lue large cuff BP Diastolic Sitting 82 mmHg Lue large cuff Respiratory Rate 16 /min O2 % BldC Oximetry 97 % Neck Circumference in inches 15.75 Results Test Date Facility Test Result H/L Range Note Laboratory test 02/01/2019 [facility] Surgical SEE RESULT [address] [place] [address] [phone] 1 SEE RESULT BELOW Name: CANDY SUAREZ Natalia : [address]: Sixto Cox DO Acct: [id number] Unit: [id number] AGE: 53 Location: ENDO Re02/01/19 SEX: F Status: DEP REF SPEC: [id number] OSMAN: 02/01/19-[address]: Sixto Cox DO REQ: [id number] RECD: 02/01/19925 STATUS: JORY ARNDT DR: Ana Maria Hawkins MD _ ORDERED: LEVEL 4 FINAL DIAGNOSIS Distal esophagus, biopsy: -- Gastroesophageal transition zone mucosa with inflamed polypoid fragment of gastric Cardia-type mucosa with extensive goblet cell/intestinal metaplasia. -- Mild reflux esophagitis noted (up to 5 eosinophil/HPF). -- No dysplasia identified. 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 Signed by and Reported on: Marcelo Evans MD 12/19 1211 END OF REPORT DEPARTMENT OF PATHOLOGY, [address] [place] [address] Marcelo Evans M.D. Director [facility] # [id number] Procedures Date Code Description Status 02/06/2019 15790 Sleep Study Unattended,HRT Rate,Oxygen Sat,Resp Completed Effort/Airflow 09/03/2008 01045 EKG, Interpretation Only Completed Encounters Type Date Location Provider Dx Diagnosis Office Visit 01/29/2019 [facility] Jenni Farr MD R06.83 Snoring 8:00a [facility] R53.83 Other fatigue E66.9 Obesity, unspecified Plan of Treatment Future Appointment(s):06/14/2019 3:00 pm - Yelena Bustos NP at [facility]04/19/2019 - Yelena Bustos NPG47.33 Obstructive sleep apnea (adult) (pediatric)New Orders:[facility], Ordered: 04/19/19Follow up:6 weeksRecommendations:You are being set up with CPAP for your sleep apnea through [facility] . They will call you to set up an appointment to get fit for a mask and roller picker your machine. If you have difficulty with your equipment, or need to replace your mask or hoses, please contact your homecare agency. If you have any further questions, please call the [facility] at [phone] Ifyou have any sleepiness while driving you MUST avoid operating a vehicle or machinery.E66.9 Obesity, unspecifiedRecommendations:Keep up the good work with your weight loss efforts! It is important to bring your CPAP with you [facility] when you go for your surgery so you can use it when you sleep. In general, using CPAP will help you feel more well rested, which will help with your weight loss. When you are less tired, you will have more energy to exercise and make good food choices. Many people are able to lessen theseverity of their sleep apnea or resolve it entirely with weight loss. Once you are at your goal weight, we can re-test you and see if you still have sleep apnea. You should continue using your CPAP until you have a test that shows your sleep apnea has resolved.R53.83 Other fatigue
[2019-05-14 07:38] VITALS: BP 000/00
== END 2019-05-14 07:55 | disposition home health service (06) ==
LOC: UCEAST 07:30
DX: R10.9 Unspecified abdominal pain (principal); R11.2 Nausea with vomiting, unspecified; I10 Essential (primary) hypertension; Z88.2 Allergy status to sulfonamides
CPT/HCPCS: 99212; G0463

== ENCOUNTER 2019-05-14 07:54 | Emergency (ER) | payer OTHER ==
--- NOTE | 2019-05-14 08:15 | ED ---
Abdominal Pain/Female - HPI Summary HPI Summary: Pt is a 53 y/o F presenting to the ED with a chief complaint of R lower abd pain that radiates to her back. She states the pain became severe and constant at 0300, and she rates it at 15/10. She reports vomiting. She denies fevers, chills, or hematuria. - History of Current Complaint Chief Complaint: EDFlankPain Stated Complaint: POSSIBLE KIDNEY STONE Time Seen by Provider: 05/14/19 08:00 Hx Obtained From: Patient Onset/Duration: Gradual Onset, Lasting Hours, Still Present Timing: Hours Severity Initially: Moderate Severity Currently: Severe Pain Intensity: 10 Pain Scale Used: 0-10 Numeric Location: Discrete At: RLQ Radiates: Yes Radiates to: Back Aggravating Factor(s): Nothing Alleviating Factor(s): Nothing Associated Signs and Symptoms: Positive: Vomiting. Negative: Fever, Urinary Symptoms Allergies/Adverse Reactions: Allergies Allergy/AdvReac Type Severity Reaction Status Date / Time Sulfa (Sulfonamide Allergy Severe Unknown Verified 05/14/19 07:39 Antibiotics) Reaction Details iodine Allergy Unknown Verified 05/14/19 07:39 Reaction Details iodixanol [From Visipaque] Allergy Unknown Verified 01/24/19 15:51 Reaction Details PMH/Surg Hx/FS Hx/Imm Hx Previously Healthy: Yes Endocrine/Hematology History: Denies: Hx Diabetes, Hx Thyroid Disease Cardiovascular History: Reports: Hx Hypertension Denies: Hx Pacemaker/ICD Respiratory History: Reports: Hx Seasonal Allergies Denies: Hx Asthma, Hx Chronic Obstructive Pulmonary Disease (COPD) GI History: Reports: Hx Gall Bladder Disease - gall bladder removed evangelista 2007 Denies: Hx Gastroesophageal Reflux Disease, Hx Ulcer History: Denies: Hx Kidney Stones, Hx Renal Disease Musculoskeletal History: Reports: Hx Arthritis - back and thumb Sensory History: Reports: Hx Contacts or Glasses Denies: Hx Hearing Aid Opthamlomology History: Reports: Hx Contacts or Glasses Neurological History: Reports: Hx Migraine, Other Neuro Impairments/Disorders - vertigo Psychiatric History: Reports: Hx Anxiety, Hx Depression, Hx Panic Disorder - PTSD/ANXIETY, Hx Post Traumatic Stress Disorder - Cancer History Hx Chemotherapy: No Hx Radiation Therapy: No - Surgical History Surgery Procedure, Year, and Place: GALLBLADDER ,CSECTION [id number],HYSTERECTOMY ,TUBAL; ear tubes; tonsilectomy Hx Anesthesia Reactions: No - Immunization History Date of Tetanus Vaccine: pt states unsure Date of Influenza Vaccine: none Infectious Disease History: No Infectious Disease History: Denies: Hx Clostridium Difficile, Hx Hepatitis, Hx Human Immunodeficiency Virus (HIV), Hx of Known/Suspected MRSA, Hx Shingles, Hx Tuberculosis, Hx Known/ Suspected VRE, Hx Known/Suspected VRSA, History Other Infectious Disease, Traveled Outside the [place] in Last 30 Days - Family History Known Family History: Positive: Hypertension, Diabetes, Other - [place] - Social History Alcohol Use: Occasionally Hx Substance Use: No Substance Use Type: Reports: None Hx Tobacco Use: No Smoking Status (MU): Never Smoked Tobacco Have You Smoked in the Last Year: No Review of Systems Negative: Fever, Chills Positive: Abdominal Pain, Vomiting Negative: hematuria Positive: Myalgia - back pain All Other Systems Reviewed And Are Negative: Yes Physical Exam - Summary Physical Exam Summary: GENERAL: Patient is a well-developed and nourished F who is lying comfortable in the stretcher. Patient is not in any acute respiratory distress. HEAD AND FACE: Normocephalic EYES: PERRLA, EOMI x 2. EARS: Hearing grossly intact. MOUTH: Oropharynx within normal limits. NECK: Supple, trachea is midline, no adenopathy, no JVD, no carotid bruit. CHEST: Symmetric, no tenderness at palpation LUNGS: Clear to auscultation bilaterally. No wheezing or crackles. CVS: Regular rate and rhythm, S1 and S2 present, no murmurs or gallops appreciated. ABDOMEN: Minimal tenderness to palpation in the R lower abd. Bowel sounds are normal. No abnormal abdominal pulsations. EXTREMITIES: Full ROM in all major joints, no edema, no cyanosis or clubbing. NEURO: Alert and oriented x 3. No acute neurological deficits. Speech is normal and follows commands. SKIN: Dry and warm Triage Information Reviewed: Yes Vital Signs On Initial Exam: Initial Vitals Temp Pulse Resp BP Pulse Ox 96.1 F 105 22 203/119 98 05/14/19 07:56 05/14/19 07:56 05/14/19 07:56 05/14/19 07:56 05/14/19 07:56 Vital Signs Reviewed: Yes Diagnostics - Vital Signs Vital Signs Temp Pulse Resp BP Pulse Ox 05/14/19 07:56 96.1 F 105 22 203/119 98 - Laboratory Result Diagrams: 05/14/19 08:19 05/14/19 08:19 Lab Statement: Any lab studies that have been ordered have been reviewed, and results considered in the medical decision making process. - CT CT a/p CT Interpretation Completed By: Radiologist Summary of CT Findings: 1. Moderate RIGHT hydroureteronephrosis. Punctate 1 mm stone in the dependent portion of the urinary bladder may reflect a recently passed stone or a stone at the far distal margin of the ureteral vesicular junction. 2. Follow-up pancreatic mass protocol CT suggested to further characterize potential mass lesion at the head of the pancreas. ED physician has reviewed this report. Abdominal Pain Fem Course/Dx - Course Course Of Treatment: Pt is a 53 y/o F presenting to the ED with a chief complaint of constant R lower abd pain that radiates to her back, rated at 15/ 10. She reports vomiting and denies fevers, chills, and hematuria. Her physical exam is nml aside from minimal tenderness in the R lower abd. Pts lab results show WBC of 11.3, APTT of 38.4, and CO2 of 21. Her UA shows 2+ blood , 3+ RBC, and present squamous epithelial cells. In the ED course, the pt was given Zofran, Toradol, Morphine, and fluids. CT a/p shows: 1. Moderate RIGHT hydroureteronephrosis. Punctate 1 mm stone in the dependent portion of the urinary bladder may reflect a recently passed stone or a stone at the far distal margin of the ureteral vesicular junction. 2. Follow-up pancreatic mass protocol CT suggested to further characterize potential mass lesion at the head of the pancreas. I spoke with Dr. Salvador about the pt's present illness. I explained that the next step would be to get a mass protocol CT with contrast, but the patient is allergic to iodine. We discussed that the other option would be to get an MRI done, but this can be done urgently, and ordered by her PCP. I discussed this plan with the patient who agrees to follow up with urology about her kidney stones as well as her PCP to get an MRI done to further evaluate her pancreatic lesion. Her dx will include kidney stones and pancreatic lesion. She is hemodynamically stable and safe for discharge. Strict return precautions given. - Diagnoses Provider Diagnoses: Kidney stones, Pancreatic lesion Discharge - Sign-Out/Discharge Documenting (check all that apply): Patient Departure Patient Received Moderate/Deep Sedation with Procedure: No - Discharge Plan Condition: Stable Disposition: HOME Patient Education Materials: Kidney Stones (ED) Forms: *Work Release Referrals: Ana Maria Cormier MD [Primary Care Provider] - Brian Brown MD [Medical Doctor] - Additional Instructions: Please follow up with your primary care provider. You need to have an MRI done mass protocol to be ordered by your primary care provider to evaluate possible lesions on your pancreas. Please also follow up with Dr. Brown of urology about your kidney stones. Return to the emergency department with any new or worsening symptoms. - Billing Disposition and Condition Condition: STABLE Disposition: Home - Attestation Statements Document Initiated by Scribe: Yes Documenting Scribe: Colette Nicole Provider For Whom Clay is Documenting (Include Credential): Sania Ley MD. Scribe Attestation: Colette Jain, scribed for Sania Ley MD. on 05/14/19 at 1246. Scribe Documentation Reviewed: Yes Provider Attestation: The documentation as recorded by the scribe, Colette Nicole accurately reflects the service I personally performed and the decisions made by , David Ley MD. Status of Scribe Document: Viewed Consult Consult: [id number] - I spoke with Dr. Salvador about the pt's present illness. I explained that the next step would be to get a mass protocol CT with contrast, but the patient is allergic to iodine. We discussed that the other option would be to get an MRI done, but this can be done urgently, and ordered by her PCP.
[2019-05-14] MEDS ORDERED: Ondansetron INJ* 2 MG/ML VIAL IV ONE (08:16)
[2019-05-14] MEDS ORDERED: Ketorolac INJ* 30 MG/ML 1 ML VIAL IV PUSH ONE (08:16)
[2019-05-14] MEDS ORDERED: NS 0.9% 1000 ML** 1,000 ML IV ONE (08:16)
[2019-05-14 08:26] LABS: ABS Basophils 0.1 10^3/ul (0-0.2); ABS Eosinophils 0.3 10^3/ul (0-0.6); ABS Lymphocytes 2.1 10^3/ul (1.0-4.8); ABS Monocytes 0.7 10^3/ul (0-0.8); ABS Neutrophils 8.2 10^3/ul (1.5-7.7); Eosinophil % 2.3 %; Hematocrit 39 % (35-47); Hemoglobin 12.9 g/dL (12.0-16.0); Lymphocyte % 18.8 %; Mean Corpuscular HGB Conc 33 g/dL (31-36); Mean Corpuscular Hemoglobin 30 pg (27-31); Mean Corpuscular Volume 90 fL (80-97); Mean Platelet Volume 7.9 fL (7.4-10.4); Platelet Count 336 10^3/uL (150-450); Red Blood Count 4.32 10^6 /uL (3.70-4.87); Red Cell Distribution Width 14 % (10-15); White Blood Count 11.3 10^3/uL (3.5-10.8)
[2019-05-14 08:37] LABS: Activated Partial Thrombo Time 38.4 seconds (26.0-38.0); INR 0.86 (0.82-1.09)
[2019-05-14 08:45] LABS: Albumin 4.2 g/dL (3.2-5.2); Albumin/Globulin Ratio 1.4 (1-3); BUN/Creatinine Ratio 10.9 (8-20); C Reactive Protein 5.04 mg/L (<8.01); Calcium 9.6 mg/dL (8.6-10.3); EGFR African American 77.3 (>60); EGFR Non-African American 63.9 (>60); Potassium 3.8 mmol/L (3.5-5.0); Total Bilirubin 0.3 mg/dL (0.2-1.0); Total Protein 7.2 g/dL (6.4-8.9)
[2019-05-14] MEDS ORDERED: Morphine 4 MG/ML VIAL (1 ml) 4 MG/ML VIAL IV ONE (08:47)
[2019-05-14 09:39] LABS: Urine Appearance Cloudy; Urine Bacteria Absent (Absent); Urine Bilirubin Negative (Negative); Urine Blood 2+ (Negative); Urine Color Yellow; Urine Glucose Negative (Negative); Urine Ketones Negative (Negative); Urine Nitrite Negative (Negative); Urine Protein Negative (Negative); Urine Red Blood Cell 3+(>10/hpf) (Absent); Urine Squamous Epithelial Cell Present (Absent); Urine Urobilinogen Negative (Negative); Urine White Blood Cell Trace(0-5/hpf) (Absent)
[2019-05-14 10:30] VITALS: BP 136/62
== END 2019-05-14 10:29 | disposition home or self-care (01) ==
LOC: ED 07:54
DX: N20.0 Calculus of kidney (principal); K86.9 Disease of pancreas, unspecified; R10.84 Generalized abdominal pain; I10 Essential (primary) hypertension; R11.10 Vomiting, unspecified; M54.9 Dorsalgia, unspecified; Z90.49 Acquired absence of other specified parts of digestive tract
CPT/HCPCS: 36415; 74176; 80053; 81003; 81015; 83605; 83690; 85025; 85610; 85730; 86140; 87086; 96374; 96375; 99283; J1885; J2270; J2405

== ENCOUNTER 2019-08-19 09:03 | Emergency (ER) | payer OTHER ==
--- OUTSIDE RECORDS SUMMARY | 2019-08-19 09:25 | XMS REPORT | Continuity of Care Document ---
:1965 External Reference #:[id number] Author Name Ana Maria Cormier M.D. Address [address] [place] [id number] Problems Active Problems Provider Date Dyspnea Ana Maria Cormier M.D. Onset: 12/20/2011 Acute exacerbation of chronic obstructive Ana Maria Cormier M.D. Onset: 2011 airways disease Malaise and fatigue Ana Maria Cormier M.D. Onset: 12/20/2011 Anxiety state Ana Maria Cormier M.D. Onset: 12/20/2011 Benign essential hypertension Manolo Lieberman [employer] Onset: 12/20/2011 Overweight Manolo Lieberman [employer] Onset: 12/20/2011 Morbid obesity Manolo Lieberman [employer] Onset: 12/20/2011 Depressive disorder Manolo Lieberman [employer] Onset: 12/20/2011 Degeneration of lumbar intervertebral disc Manolo Lieberman [employer] Onset: 12/20/2011 Low back pain DAMION Manzano Onset: 12/20/2011 Myalgia & Myositis Unspecified DAMION Manzano Onset: 12/20/2011 Peptic reflux disease Ana Maria Cormier M.D. Onset: 12/20/2011 Asthma without status asthmaticus Ana Maria Cormier M.D. Onset: 10/26/2012 Dysfunction of eustachian tube Ana Maria Cormier M.D. Onset: 10/26/2012 Type II diabetes mellitus uncontrolled Ana Maria Cormier M.D. Onset: 2012 Osteoarthritis Ana Maria Cormier M.D. Onset: 10/26/2012 Allergic rhinitis Ana Maria Cormier M.D. Onset: 10/26/2012 Indigestion Ana Maria Cormier M.D. Onset: 10/26/2012 Mixed hyperlipidemia Ana Maria Cormier M.D. Onset: 10/26/2012 Hypothyroidism Ana Maria Cormier M.D. Onset: 01/29/2014 Posttraumatic stress disorder Ana Maria Cormier M.D. Onset: 01/29/2014 Insomnia Ana Maria Cormier M.D. Onset: 02/04/2015 Palpitations Ana Maria Cormier M.D. Onset: 02/04/2015 Essential hypertension Manolo Lieberman [employer] Onset: 08/20/2015 Degeneration of lumbosacral intervertebral Ana Maria Cormier M.D. Onset: 09/08 disc Other specified disorders of Eustachian tube, Ana Maria Cormier M.D. Onset: bilateral Social History Type Date Description Comments Sex Unknown Tobacco Use Start: Unknown Never Smoked Cigarettes ETOH Use Rarely consumes alcohol Tobacco Use Start: Unknown Patient has never smoked Allergies, Adverse Reactions, Alerts Active Allergies Reaction Severity Comments Date Sulfa Antibiotics 02/08/2012 Medications Active Medications SIG Qnty Indications Ordering Date Provider Pantoprazole Sodium 1 by mouth every 90tabs K21.0 Ana Maria Cormier, 2018 40mg day M.D. Tablets DR Batemanatarufina 1 tab by mouth 90tabs J30.9 Ana Maria Cormier, 07/06/2019 10mg Tablets every day M.D. Triamcinolone apply to affected 15gm S50.862A Ana Maria Cormier, 07/06/2019 Acetonide area twice a day M.D. 0.5% Cream as needed L20.9 Buspirone HCL 1 tab by mouth 180tabs F41.9 Ana Maria Cormier, 05/24/2019 15mg twice a day M.D. Tablets Lorazepam 1/2-1 tab by mouth 60tabs F43.12 Ana Maria Cormier, 04/03/2019 1mg Tablets three times a day M.D. as needed G47.00 F41.9 Hydroxyzine HCL take 1 to 2 tablets 180tabs H66.93 Ana Maria Cormier, 2018 25mg every night as M.D. Tablets needed Vitamin D3 1 cap by mouth 12caps E55.9 CasaAna Maria amador, 12/14/2018 [id number] every week M.D. Capsules Fluoxetine HCL 1 tab by mouth 180caps F41.9 CasaAna Maria amador, 01/23/2018 20mg twice a day every M.D. Capsules evening F33.9 Lidoderm apply 1 patch to 90units M25.511 Ana Maria Cormier, 07/14/2017 5% Patches affected arae every M.D. day M54.5 Epipen 2-Travon inject as directed 1units Z91.030 Ana Maria Cormier, 05/12/2016 0.3mg/0.3ML M.D. Solution Auto-Inject Propranolol HCL 1 tab by mouth 90tabs I10 Ana Maria Cormier, 02/04/2015 40mg every day M.D. Tablets Singulair take one tablet by 90tabs J45.909 Ana Maria Cormier, 04/21/2012 10mg Tablets mouth one time M.D. daily J30.89 History Medications Amoxicillin/Clavulanate 1 tab by 30tabs H66.93 Ana Maria Cormier 04/02/2019 - Potassium mouth twice M., M.D. 05/03/2019 875-125mg Tablets a day Diflucan 1 by mouth 14tabs H66.93 CasaAna Maria amador 04/02/2019 - 100mg Tablets every day x M., M.D. 05/03/2019 1 week then skip week then restart. Medications Administered in Office Medication SIG Qnty Indications Ordering Provider Date Depo Provera Injection DAMION Manzano 03/23/2004 Injection Injection Ana Maria Cormier M.D. 03/23/2004 Therapeutic/Prophylactic/Diagos tic Injection Immunizations CPT Code Status Date Vaccine Lot # [id number] Given 03/24/2015 TDaP [id number] Given 10/26/2012 Flu Vaccine [id number] Given 08/08/1997 DT Pediatric Vital Signs Date Vital Result Comment 07/06/2019 9:37am BP Systolic 118 mmHg BP Diastolic 66 mmHg Height 68 inches 5'8" Heart Rate 82 /min Respiratory Rate 16 /min 06/01/2019 10:18am BP Systolic 136 mmHg BP Diastolic 98 mmHg Height 68 inches 5'8" Weight 285.00 lb BMI (Body Mass Index) 43.3 kg/m2 Heart Rate 92 /min Respiratory Rate 16 /min Results Test Date Facility Test Result H/L Range Note Comp Metabolic Panel 05/14/2019 [facility] Sodium 142 mmol/L Normal 135-145 Potassium 3.8 mmol/L Normal 3.5-5.0 Chloride 111 mmol/L Normal 101-111 Co2 Carbon Dioxide 21 mmol/L Low 22-32 Anion Gap 10 mmol/L Normal 2-11 Glucose 114 mg/dL High 70-100 Blood Urea Nitrogen 10 mg/dL Normal 6-24 Creatinine 0.92 mg/dL Normal 0.51-0.95 BUN/Creatinine Ratio 10.9 Normal 8-20 Calcium 9.6 mg/dL Normal 8.6-10.3 Total Protein 7.2 g/dL Normal 6.4-8.9 Albumin 4.2 g/dL Normal 3.2-5.2 Globulin 3.0 g/dL Normal 2-4 Albumin/Globulin Ratio 1.4 Normal 1-3 Total Bilirubin 0.30 mg/dL Normal 0.2-1.0 Alkaline Phosphatase 70 U/L Normal 34-104 Alt 16 U/L Normal 7-52 Ast 20 U/L Normal 13-39 Egfr Non- 63.9 >60 Egfr 77.3 >60 1 Laboratory test finding 05/14/2019 [facility] Lipase 32 U/L Normal 11.0-82.0 C Reactive Protein 5.04 mg/L Normal <8.01 Lactic Acid 1.6 mmol/L Normal 0.5-2.0 2 CBC Auto Diff 05/14/2019 [facility] White Blood 11.3 10^3/uL High 3.5 -10.8 Count Red Blood Count 4.32 10^6/uL Normal 3.70-4.87 Hemoglobin 12.9 g/dL Normal 12.0-16.0 Hematocrit 39 % Normal 35-47 Mean Corpuscular Volume 90 fL Normal 80-97 Mean Corpuscular Hemoglobin 30 pg Normal 27-31 Mean Corpuscular HGB Conc 33 g/dL Normal 31-36 Red Cell Distribution Width 14 % Normal 10-15 Platelet Count 336 10^3/uL Normal 150-450 Mean Platelet Volume 7.9 fL Normal 7.4-10.4 Abs Neutrophils 8.2 10^3/uL High 1.5-7.7 Abs Lymphocytes 2.1 10^3/uL Normal 1.0-4.8 Abs Monocytes 0.7 10^3/uL Normal 0-0.8 Abs Eosinophils 0.3 10^3/uL Normal 0-0.6 Abs Basophils 0.1 10^3/uL Normal 0-0.2 Abs Nucleated RBC 0.0 10^3/uL Granulocyte % 72.1 % Lymphocyte % 18.8 % Monocyte % 5.9 % Eosinophil % 2.3 % Basophil % 0.9 % Nucleated Red Blood Cells % 0.0 Inr/Protime 05/14/2019 [facility] Inr 0.86 Normal 0.82-1.09 3 Laboratory test 05/14/2019 [facility] Partial 38.4 seconds High 26.0- 38.0 finding Thrombo Time PTT Urinalysis 05/14/2019 [facility] Urine Color Yellow Profile Urine Appearance Cloudy Urine Specific [place] 1.020 Normal 1.010-1.030 Urine pH 5.0 Normal 5-9 Urine Urobilinogen Negative Negative Urine Ketones Negative Negative Urine Protein Negative Negative Urine Leukocytes Negative Negative Urine Blood 2+ Abnormal Negative Urine Nitrite Negative Negative Urine Bilirubin Negative Negative Urine Glucose Negative Negative Urine White Blood Cell Trace(0-5/hpf) Absent Urine Red Blood Cell 3+(>10/hpf) Abnormal Absent Urine Bacteria Absent Absent Urine Squamous Epithelial Cell Present Abnormal Absent Urine Culture And 05/14/2019 [facility] Urine Culture SEE RESULT 4 Sensitivities BELOW Laboratory test 02/01/2019 [facility] Clotest SEE RESULT 5 finding BELOW Laboratory test 02/01/2019 [facility] Surgical SEE RESULT 6 finding Interface Order BELOW 1 Because ethnic data is not always readily available, this report includes an eGFR for both -Americans and non- Americans. The National Kidney Disease Education Program (NKDEP) does not endorse the use of the MDRD equation for patients that are not between the ages of 18 and 70, are , have extremes of body size, muscle mass, or nutritional status, or are non- or non-. According to the National Kidney Foundation, irrespective of diagnosis, the stage of the disease is based on the level of kidney function: Stage Description GFR(mL/min/1.73 m(2)) 1 Kidney damage with normal or decreased GFR 90 2 Kidney damage with mild decrease in GFR 60-89 3 Moderate decrease in GFR 30-59 4 Severe decrease in GFR 15-29 5 Kidney failure <15 (or dialysis) 2 [place] Severe Sepsis and Septic Shock Management Bundle Measure requires all lactic acids initially measuring >2.0 mmol/L be repeated. 3 Standard intensity warfarin therapeutic range: 2.0-3.0 High intensity warfarin therapeutic range: 2.5-3.5 4 SEE RESULT BELOW Name: CANDY SUAREZ : [address]: David eLy MD Acct: [id number] Unit: [id number] AGE: 53 Location: ED Re05/14/19 SEX: F Status: DEP ER SPEC: [id number] OSMAN: 05/14/[address]: Sania Ley MD REQ: [id number] RECD: 05/14/19 STATUS: COMP [facility] DR: Ana Maria Cormier MD _ SOURCE: URINE SPDESC: ORDERED: Urine Culture Procedure Result Reported Site Urine Culture Final 05/15/19- 1259 ML No growth of clinically significant organisms * ML - Main Lab . END OF REPORT DEPARTMENT OF PATHOLOGY, [address] [place] [address] Marcelo Evans M.D. Director [facility] # [id number] 5 SEE RESULT BELOW Name: CANDY SUAREZ : [address]: Sixto Cox DO Acct: [id number] Unit: [id number] AGE: 53 Location: ENDO Re02/01/19 SEX: F Status: REG REF SPEC: [id number] OSMAN: 02/01/19 [facility] DR: Sixto Cox DO REQ: [id number] RECD: 02/01/19 STATUS: MARAH ARNDT DR: Ana Maria Cormier MD _ SOURCE: GAS ANTRUM SPDESC: ORDERED: Clotest Procedure Result Reported Site Clotest Final 02/02/19- 908 ML Clotest Positive * ML - Main Lab . END OF REPORT DEPARTMENT OF PATHOLOGY, [address] [place] [address] Marcelo Evans M.D. Director [facility] # [id number] 6 SEE RESULT BELOW Name: CANDY SUAREZ Natalia : [address]: Sixto Cox DO Acct: [id number] Unit: [id number] AGE: 53 Location: ENDO Re02/01/19 SEX: F Status: DEP REF SPEC: [id number] OSMAN: 02/01/19 [facility] DR: Sixto Cox DO REQ: [id number] RECD: 02/01/19384 STATUS: JORY ARNDT DR: Ana Maria Hawkins [...] 1211 END OF REPORT DEPARTMENT OF PATHOLOGY, [address] [place] [address] Marcelo Evans M.D. Director [facility] # [id number] Procedures Date Code Description Status 10/03/2011 [id number] Colonoscopy Completed 10/03/2011 [id number] Mammogram Completed Medical Devices Description No Information Available Encounters Type Date Location Provider Dx Diagnosis Office Visit 07/06/2019 Ana Maria Gonsalves, E78.2 Mixed hyperlipidemia 9:30a M.D. I10 Essential (primary) hypertension M51.37 Other intervertebral disc degeneration, lumbosacral region E11.65 Type 2 diabetes mellitus with hyperglycemia F33.9 Major depressive disorder, recurrent, unspecified F43.12 Post-traumatic stress disorder, chronic E66.01 Morbid (severe) obesity due to excess calories Z91.030 Bee allergy status J45.909 Unspecified asthma, uncomplicated M75.111 Incomplete rotatr-cuff tear/ruptr of r shoulder, not trauma M25.511 Pain in right shoulder M15.9 Polyosteoarthritis, unspecified K21.0 Gastro-esophageal reflux disease with esophagitis M25.559 Pain in unspecified hip H69.83 Other specified disorders of Eustachian tube, bilateral K30 Functional dyspepsia E03.9 Hypothyroidism, unspecified H81.13 Benign paroxysmal vertigo, bilateral G47.00 Insomnia, unspecified J30.9 Allergic rhinitis, unspecified L20.9 Atopic dermatitis, unspecified H92.03 Otalgia, bilateral M54.5 Low back pain G47.33 Obstructive sleep apnea (adult) (pediatric) J32.9 Chronic sinusitis, unspecified N95.1 Menopausal and female climacteric states R53.83 Other fatigue F41.9 Anxiety disorder, unspecified H69.90 Unspecified Eustachian tube disorder, unspecified ear E55.9 Vitamin D deficiency, unspecified N20.0 Calculus of kidney 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 S50.862A Insect bite (nonvenomous) of left forearm, initial encounter Office Visit 06/01/2019 11:15a [facility] Ana Maria Cormier E78.2 Mixed hyperlipidemia Colleen Lanza I10 Essential (primary) hypertension M51.37 Other intervertebral disc degeneration, lumbosacral region E11.65 Type 2 diabetes mellitus with hyperglycemia F33.9 Major depressive disorder, recurrent, unspecified F43.12 Post-traumatic stress disorder, chronic E66.01 Morbid (severe) obesity due to excess calories Z91.030 Bee allergy status J45.909 Unspecified asthma, uncomplicated M75.111 Incomplete rotatr-cuff tear/ruptr of r shoulder, not trauma M25.511 Pain in right shoulder M15.9 Polyosteoarthritis, unspecified K21.0 Gastro-esophageal reflux disease with esophagitis M25.559 Pain in unspecified hip H69.83 Other specified disorders of Eustachian tube, bilateral K30 Functional dyspepsia E03.9 Hypothyroidism, unspecified H81.13 Benign paroxysmal vertigo, bilateral G47.00 Insomnia, unspecified J30.9 Allergic rhinitis, unspecified L20.9 Atopic dermatitis, unspecified H92.03 Otalgia, bilateral M54.5 Low back pain G47.33 Obstructive sleep apnea (adult) (pediatric) J32.9 Chronic sinusitis, unspecified N95.1 Menopausal and female climacteric states R53.83 Other fatigue F41.9 Anxiety disorder, unspecified H69.90 Unspecified Eustachian tube disorder, unspecified ear E55.9 Vitamin D deficiency, unspecified N20.0 Calculus of kidney 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 Office Visit 05/24/2019 4:30p [facility] Ana Maria Cormier E78.2 Mixed hyperlipidemia Colleen Lanza I10 Essential (primary) hypertension M51.37 Other intervertebral disc degeneration, lumbosacral region E11.65 Type 2 diabetes mellitus with hyperglycemia F33.9 Major depressive disorder, recurrent, unspecified F43.12 Post-traumatic stress disorder, chronic E66.01 Morbid (severe) obesity due to excess calories Z91.030 Bee allergy status J45.909 Unspecified asthma, uncomplicated M75.111 Incomplete rotatr-cuff tear/ruptr of r shoulder, not trauma M25.511 Pain in right shoulder M15.9 Polyosteoarthritis, unspecified K21.0 Gastro-esophageal reflux disease with esophagitis M25.559 Pain in unspecified hip H69.83 Other specified disorders of Eustachian tube, bilateral K30 Functional dyspepsia E03.9 Hypothyroidism, unspecified H81.13 Benign paroxysmal vertigo, bilateral G47.00 Insomnia, unspecified J30.9 Allergic rhinitis, unspecified L20.9 Atopic dermatitis, unspecified H92.03 Otalgia, bilateral M54.5 Low back pain G47.33 Obstructive sleep apnea (adult) (pediatric) J32.9 Chronic sinusitis, unspecified N95.1 Menopausal and female climacteric states R53.83 Other fatigue F41.9 Anxiety disorder, unspecified H69.90 Unspecified Eustachian tube disorder, unspecified ear E55.9 Vitamin D deficiency, unspecified N20.0 Calculus of kidney 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 I10 Essential (primary) hypertension M51.37 Other intervertebral disc degeneration, lumbosacral region E11.65 Type 2 diabetes mellitus with hyperglycemia F33.9 Major depressive disorder, recurrent, unspecified F43.12 Post-traumatic stress disorder, chronic E66.01 Morbid (severe) obesity due to excess calories Z91.030 Bee allergy status J45.909 Unspecified asthma, uncomplicated M75.111 Incomplete rotatr-cuff tear/ruptr of r shoulder, not trauma M25.511 Pain in right shoulder M15.9 Polyosteoarthritis, unspecified K21.0 Gastro-esophageal reflux disease with esophagitis M25.559 Pain in unspecified hip H69.83 Other specified disorders of Eustachian tube, bilateral K30 Functional dyspepsia E03.9 Hypothyroidism, unspecified H81.13 Benign paroxysmal vertigo, bilateral G47.00 Insomnia, unspecified J30.9 Allergic rhinitis, unspecified L20.9 Atopic dermatitis, unspecified H92.03 Otalgia, bilateral M54.5 Low back pain G47.33 Obstructive sleep apnea (adult) (pediatric) J32.9 Chronic sinusitis, unspecified N95.1 Menopausal and female climacteric states R53.83 Other fatigue F41.9 Anxiety disorder, unspecified H69.90 Unspecified Eustachian tube disorder, unspecified ear R06.02 Shortness of breath R05 Cough E55.9 Vitamin D deficiency, unspecified H66.93 Otitis media, unspecified, bilateral Assessments Date Code Description Provider 07/06/2019 E78.2 Mixed hyperlipidemia Ana Maria Cormier M.D. 07/06/2019 I10 Essential (primary) hypertension Ana Maria Cormier M.D. 07/06/2019 M51.37 Other intervertebral disc degeneration, Ana Maria Cormier M.D. lumbosacral region 07/06/2019 E11.65 Type 2 diabetes mellitus with hyperglycemia Ana Maria Cormier M.D. 07/06/2019 F33.9 Major depressive disorder, recurrent, Ana Maria Cormier M.D. unspecified 07/06/2019 F43.12 Post-traumatic stress disorder, chronic Ana Maria Cormier M.D. 07/06/2019 E66.01 Morbid (severe) obesity due to excess Ana Maria Cormier M.D. calories 07/06/2019 Z91.030 Bee allergy status Ana Maria Cormier M.D. 07/06/2019 J45.909 Unspecified asthma, uncomplicated Ana Maria Cormier M.D. 07/06/2019 M75.111 Incomplete rotator cuff tear or rupture of Ana Maria Cormier M.D. right shoulder, not specified as traumatic 07/06/2019 M25.511 Pain in right shoulder Ana Maria Cormier M.D. 07/06/2019 M15.9 Polyosteoarthritis, unspecified Ana Maria Cormier M.D. 07/06/2019 K21.0 Gastro-esophageal reflux disease with Ana Maria Cormier M.D. esophagitis 07/06/2019 M25.559 Pain in unspecified hip Ana Maria Cormier M.D. 07/06/2019 H69.83 Other specified disorders of Eustachian Ana Maria Cormier M.D. tube, bilateral 07/06/2019 K30 Functional dyspepsia Ana Maria Cormier M.D. 07/06/2019 E03.9 Hypothyroidism, unspecified Ana Maria Cormier M.D. 07/06/2019 H81.13 Benign paroxysmal vertigo, bilateral Ana Maria Cormier M.D. 07/06/2019 G47.00 Insomnia, unspecified Ana Maria Cormier M.D. 07/06/2019 J30.9 Allergic rhinitis, unspecified Ana Maria Cormier M.D. 07/06/2019 L20.9 Atopic dermatitis, unspecified Ana Maria Cormier M.D. 07/06/2019 H92.03 Otalgia, bilateral Ana Maria Cormier M.D. 07/06/2019 M54.5 Low back pain Ana Maria Cormier M.D. 07/06/2019 G47.33 Obstructive sleep apnea (adult) (pediatric) Ana Maria Cormier M.D. 07/06/2019 J32.9 Chronic sinusitis, unspecified Ana Maria Cormier M.D. 07/06/2019 N95.1 Menopausal and female climacteric states Ana Maria Cormier M.D. 07/06/2019 R53.83 Other fatigue Ana Maria Cormier M.D. 07/06/2019 F41.9 Anxiety disorder, unspecified Ana Maria Cormier M.D. 07/06/2019 H69.90 Unspecified Eustachian tube disorder, Ana Maria Cormier M.D. unspecified ear 07/06/2019 E55.9 Vitamin D deficiency, unspecified Ana Maria Cormier M.D. 07/06/2019 N20.0 Calculus of kidney Ana Maria Cormier M.D. 07/06/2019 D37.8 Neoplasm of uncertain behavior of other Ana Maria Cormier M.D. specified digestive organs 07/06/2019 S50.862A Insect bite (nonvenomous) of left forearm, Ana Maria Cormier M.D. initial encounter 06/01/2019 E78.2 Mixed hyperlipidemia Ana Maria Cormier M.D. 06/01/2019 I10 Essential (primary) hypertension Ana Maria Cormier M.D. 06/01/2019 M51.37 Other intervertebral disc degeneration, Ana Maria Cormier M.D. lumbosacral region 06/01/2019 E11.65 Type 2 diabetes mellitus with hyperglycemia Ana Maria Cormier M.D. 06/01/2019 F33.9 Major depressive disorder, recurrent, Ana Maria Cormier M.D. unspecified 06/01/2019 F43.12 Post-traumatic stress disorder, chronic Ana Maria Cormier M.D. 06/01/2019 E66.01 Morbid (severe) obesity due to excess Ana Maria Cormier M.D. calories 06/01/2019 Z91.030 Bee allergy status Ana Maria Cormier M.D. 06/01/2019 J45.909 Unspecified asthma, uncomplicated Ana Maria Cormier M.D. 06/01/2019 M75.111 Incomplete rotator cuff tear or rupture of Ana Maria Cormier M.D. right shoulder, n 06/01/2019 M25.511 Pain in right shoulder Ana Maria Cormier M.D. 06/01/2019 M15.9 Polyosteoarthritis, unspecified Ana Maria Cormier M.D. 06/01/2019 K21.0 Gastro-esophageal reflux disease with Ana Maria Cormier M.D. esophagitis 06/01/2019 M25.559 Pain in unspecified hip Ana Maria Cormier M.D. 06/01/2019 H69.83 Other specified disorders of Eustachian Ana Maria Cormier M.D. tube, bilateral 06/01/2019 K30 Functional dyspepsia Ana Maria Cormier M.D. 06/01/2019 E03.9 Hypothyroidism, unspecified Ana Maria Cormier M.D. 06/01/2019 H81.13 Benign paroxysmal vertigo, bilateral Ana Maria Cormier M.D. 06/01/2019 G47.00 Insomnia, unspecified Ana Maria Cormier M.D. 06/01/2019 J30.9 Allergic rhinitis, unspecified Ana Maria Cormier M.D. 06/01/2019 L20.9 Atopic dermatitis, unspecified Ana Maria Cormier M.D. 06/01/2019 H92.03 Otalgia, bilateral Ana Maria Cormier M.D. 06/01/2019 M54.5 Low back pain Ana Maria Cormier M.D. 06/01/2019 G47.33 Obstructive sleep apnea (adult) (pediatric) Ana Maria Cormier M.D. 06/01/2019 J32.9 Chronic sinusitis, unspecified Ana Maria Cormier M.D. 06/01/2019 N95.1 Menopausal and female climacteric states Ana Maria Cormier M.D. 06/01/2019 R53.83 Other fatigue Ana Maria Cormier M.D. 06/01/2019 F41.9 Anxiety disorder, unspecified Ana Maria Cormier M.D. 06/01/2019 H69.90 Unspecified Eustachian tube disorder, Ana Maria Cormier M.D. unspecified ear 06/01/2019 E55.9 Vitamin D deficiency, unspecified Ana Maria Cormier M.D. 06/01/2019 N20.0 Calculus of kidney Ana Maria Cormier M.D. 06/01/2019 D37.8 Neoplasm of uncertain behavior of other Ana Maria Cormier M.D. specified digestive organs 05/24/2019 E78.2 Mixed hyperlipidemia Ana Maria Cormier M.D. 05/24/2019 I10 Essential (primary) hypertension Ana Maria Cormier M.D. 05/24/2019 M51.37 Other intervertebral disc degeneration, Ana Maria Cormier M.D. lumbosacral region 05/24/2019 E11.65 Type 2 diabetes mellitus with hyperglycemia Ana Maria Cormier M.D. 05/24/2019 F33.9 Major depressive disorder, recurrent, Ana Maria Cormier M.D. unspecified 05/24/2019 F43.12 Post-traumatic stress disorder, chronic Ana Maria Cormier M.D. 05/24/2019 E66.01 Morbid (severe) obesity due to excess Ana Maria Cormier M.D. calories 05/24/2019 Z91.030 Bee allergy status Ana Maria Cormier M.D. 05/24/2019 J45.909 Unspecified asthma, uncomplicated Ana Maria Cormier M.D. 05/24/2019 M75.111 Incomplete rotator cuff tear or rupture of Ana Maria Cormier M.D. right shoulder, n 05/24/2019 M25.511 Pain in right shoulder Ana Maria Cormier M.D. 05/24/2019 M15.9 Polyosteoarthritis, unspecified Ana Maria Cormier M.D. 05/24/2019 K21.0 Gastro-esophageal reflux disease with Ana Maria Cormier M.D. esophagitis 05/24/2019 M25.559 Pain in unspecified hip Ana Maria Cormier M.D. 05/24/2019 H69.83 Other specified disorders of Eustachian Ana Maria Cormier M.D. tube, bilateral 05/24/2019 K30 Functional dyspepsia Ana Maria Cormier M.D. 05/24/2019 E03.9 Hypothyroidism, unspecified Ana Maria Cormier M.D. 05/24/2019 H81.13 Benign paroxysmal vertigo, bilateral Ana Maria Cormier M.D. 05/24/2019 G47.00 Insomnia, unspecified Ana Maria Cormier M.D. 05/24/2019 J30.9 Allergic rhinitis, unspecified Ana Maria Cormier M.D. 05/24/2019 L20.9 Atopic dermatitis, unspecified Ana Maria Cormier M.D. 05/24/2019 H92.03 Otalgia, bilateral Ana Maria Cormier M.D. 05/24/2019 M54.5 Low back pain Ana Maria Cormier M.D. 05/24/2019 G47.33 Obstructive sleep apnea (adult) (pediatric) Ana Maria Cormier M.D. 05/24/2019 J32.9 Chronic sinusitis, unspecified Ana Maria Cormier M.D. 05/24/2019 N95.1 Menopausal and female climacteric states Ana Maria Cormier M.D. 05/24/2019 R53.83 Other fatigue Ana Maria Cormier M.D. 05/24/2019 F41.9 Anxiety disorder, unspecified Ana Maria Cormier M.D. 05/24/2019 H69.90 Unspecified Eustachian tube disorder, Ana Maria Cormier M.D. unspecified ear 05/24/2019 E55.9 Vitamin D deficiency, unspecified Ana Maria Cormier M.D. 05/24/2019 N20.0 Calculus of kidney Ana Maria Cormier M.D. 05/24/2019 D37.8 Neoplasm of uncertain behavior of other Ana Maria Cormier M.D. specified digestive organs 05/22/2019 E78.2 Mixed hyperlipidemia Ana Maria Cormier M.D. 05/22/2019 I10 Essential (primary) hypertension Ana Maria Cormier M.D. 05/22/2019 M51.37 Other intervertebral disc degeneration, Ana Maria Cormier M.D. lumbosacral region 05/22/2019 E11.65 Type 2 diabetes mellitus with hyperglycemia Ana Maria Cormier M.D. 05/22/2019 F33.9 Major depressive disorder, recurrent, Ana Maria Cormier M.D. unspecified 05/22/2019 F43.12 Post-traumatic stress disorder, chronic Ana Maria Cormier M.D. 05/22/2019 E66.01 Morbid (severe) obesity due to excess Ana Maria Cormier M.D. calories 05/22/2019 Z91.030 Bee allergy status Ana Maria Cormier M.D. 05/22/2019 J45.909 Unspecified asthma, uncomplicated Ana Maria Cormier M.D. 05/22/2019 M75.111 Incomplete rotator cuff tear or rupture of Ana Maria Cormier M.D. right shoulder, n 05/22/2019 M25.511 Pain in right shoulder Ana Maria Cormier M.D. 05/22/2019 M15.9 Polyosteoarthritis, unspecified Ana Maria Cormier M.D. 05/22/2019 K21.0 Gastro-esophageal reflux disease with Ana Maria Cormier M.D. esophagitis 05/22/2019 M25.559 Pain in unspecified hip Ana Maria Cormier M.D. 05/22/2019 H69.83 Other specified disorders of Eustachian Ana Maria Cormier M.D. tube, bilateral 05/22/2019 K30 Functional dyspepsia Ana Maria Cormier M.D. 05/22/2019 E03.9 Hypothyroidism, unspecified Ana Maria Cormier M.D. 05/22/2019 H81.13 Benign paroxysmal vertigo, bilateral Ana Maria Cormier M.D. 05/22/2019 G47.00 Insomnia, unspecified Ana Maria Cormier M.D. 05/22/2019 J30.9 Allergic rhinitis, unspecified Ana Maria Cormier M.D. 05/22/2019 L20.9 Atopic dermatitis, unspecified Ana Maria Cormier M.D. 05/22/2019 H92.03 Otalgia, bilateral Ana Maria Cormier M.D. 05/22/2019 M54.5 Low back pain Ana Maria Cormier M.D. 05/22/2019 G47.33 Obstructive sleep apnea (adult) (pediatric) Ana Maria Cormier M.D. 05/22/2019 J32.9 Chronic sinusitis, unspecified Ana Maria Cormier M.D. 05/22/2019 N95.1 Menopausal and female climacteric states Ana Maria Cormier M.D. 05/22/2019 R53.83 Other fatigue Ana Maria Cormier M.D. 05/22/2019 F41.9 Anxiety disorder, unspecified Ana Maria Cormier M.D. 05/22/2019 H69.90 Unspecified Eustachian tube disorder, Ana Maria Cormier M.D. unspecified ear 05/22/2019 E55.9 Vitamin D deficiency, unspecified Ana Maria Cormier M.D. 04/02/2019 E78.2 Mixed hyperlipidemia Ramy Isbell N.PChristian 04/02/2019 I10 Essential (primary) hypertension Ramy Isbell, N.P. 04/02/2019 M51.37 Other intervertebral disc degeneration, Ramy Isbell N.P. lumbosacral region 04/02/2019 E11.65 Type 2 diabetes mellitus with hyperglycemia Ramy Isbell N.P. 04/02/2019 F33.9 Major depressive disorder, recurrent, Ramy Isbell N.P. unspecified 04/02/2019 F43.12 Post-traumatic stress disorder, chronic Ramy Isbell N.P. 04/02/2019 E66.01 Morbid (severe) obesity due to excess Ramy Isbell, N.P. calories 04/02/2019 Z91.030 Bee allergy status Ramy Isbell N.P. 04/02/2019 J45.909 Unspecified asthma, uncomplicated Ramy Isbell, N.P. 04/02/2019 M75.111 Incomplete rotator cuff tear or rupture of Ramy Isbell N.PChristian right shoulder, n 04/02/2019 M25.511 Pain in right shoulder Ramy Isbell N.P. 04/02/2019 M15.9 Polyosteoarthritis, unspecified Ramy Isbell, N.P. 04/02/2019 K21.0 Gastro-esophageal reflux disease with Ramy Isbell N.PChristian esophagitis 04/02/2019 M25.559 Pain in unspecified hip Ramy Isbell, N.P. 04/02/2019 H69.83 Other specified disorders of Eustachian Ramy Isbell, N.P. tube, bilateral 04/02/2019 K30 Functional dyspepsia Ramy Isbell N.P. 04/02/2019 E03.9 Hypothyroidism, unspecified Ramy Isbell, N.P. 04/02/2019 H81.13 Benign paroxysmal vertigo, bilateral Ramy Isbell, N.P. 04/02/2019 G47.00 Insomnia, unspecified Ramy Isbell, N.P. 04/02/2019 J30.9 Allergic rhinitis, unspecified Ramy Isbell, N.P. 04/02/2019 L20.9 Atopic dermatitis, unspecified Ramy Isbell, N.P. 04/02/2019 H92.03 Otalgia, bilateral Ramy Isbell, N.P. 04/02/2019 M54.5 Low back pain Ramy Isbell N.P. 04/02/2019 G47.33 Obstructive sleep apnea (adult) (pediatric) Ramy Isbell N.P. 04/02/2019 J32.9 Chronic sinusitis, unspecified Ramy Isbell N.P. 04/02/2019 N95.1 Menopausal and female climacteric states Ramy Isbell N.P. 04/02/2019 R53.83 Other fatigue Ramy Isbell N.P. 04/02/2019 F41.9 Anxiety disorder, unspecified Ramy Isbell N.P. 04/02/2019 H69.90 Unspecified Eustachian tube disorder, Ramy Isbell, N.P. unspecified ear 04/02/2019 R06.02 Shortness of breath Ramy Isbell N.P. 04/02/2019 R05 Cough Ramy Isbell N.P. 04/02/2019 E55.9 Vitamin D deficiency, unspecified Ramy Isbell N.P. 04/02/2019 H66.93 Otitis media, unspecified, bilateral Ramy Isbell N.P. Plan of Treatment 07/06/2019 - Ana Maria Cormier M.D.E78.2 Mixed hyperlipidemiaComments:DIET REVIEWED CONTINUE DIETWT LOSSF/U LAB FBWI10 Essential (primary) hypertensionComments:CHECK BP TIW ( PRN)F/U LABDIET AND FLUID COUNSELING LOW SODIUM DIETWT LOSSF/U LABM51.37 Other intervertebral disc degeneration, lumbosacral regionComments:EXERCISE/HEAT /MESSAGEAVOID HEAVY LIFTING WT LOSSTYLENOL OR MOTRIN PRNE11.65 Type 2 diabetes mellitus with hyperglycemiaComments:DIET REVIEWED CONTINUE DIETWT LOSSF/U LAB FS qAC AND HS PRN F/U FBWF33.9 Major depressive disorder, recurrent, unspecifiedComments: COUNCELLING AND REASSURANCE RELAXATION TECHNIQUES DISCUSSED COUNSELED RE: STRESSORS IN LIFEF43.12 Post-traumatic stress disorder, chronicComments: COUNCELLING AND REASSURANCE RELAXATION TECHNIQUES DISCUSSED COUNSELED RE: STRESSORS IN LIFEE66.01 Morbid (severe) obesity due to excess caloriesComments: WT LOSS COUNCELLINGEXERCISEDIET PZZNLVTKSDCB95.030 Bee allergy statusComments: INSTRUCTION AND TEACHING ON AVOIDANCE AND TREATMENTS IN CASE OF MCVTAYKHS09.909 Unspecified asthma, uncomplicatedComments:MDI / NEBULIZER TX PRN AVOID EXPOSURE TO SMOKING OR BUNRBI26.111 Incomplete rotator cuff tear or rupture of right shoulder, not specified as traumaticComments:EXERCISE/HEAT/MESSAGE TYLENOL OR MOTRIN PRNAVOID HEAVY LIFTING ELEVATE PRNM25.511 Pain in right shoulderComments: EXERCISE/HEAT /MESSAGE AVOID HEAVY LIFTINGTYLENOL OR MOTRIN PRNM15.9 Polyosteoarthritis, unspecifiedComments:EXERCISE/HEAT/MESSAGETYLENOL OR MOTRIN PRNAVOID HEAVY LIFTINGWT LOSSK21.0 Gastro-esophageal reflux disease with esophagitisNew Medication:Pantoprazole Sodium 40 mg - 1 by mouth every dayComments:AVOID CAFFEINE, ETOH AND SPICY FOODSTUMS OR MYLANTA PRN CALL WITH PROBLEMS OR WRQMXOHND54.559 Pain in unspecified hipComments:EXERCISE/HEAT/ MESSAGETYLENOL OR MOTRIN PRNAVOID HEAVY LIFTINGWT LOSSH69.83 Other specified disorders of Eustachian tube, bilateralComments:INCREASE PO FLUID USE ANTIHISTAMINE PRNTYLENOL OR MOTRIN PRN AVOID SECOND HAND [id number] Functional dyspepsiaComments:AVOID CAFFEINE, ETOH AND SPICY FOODSTUMS OR MYLANTA PRN CALL WITH PROBLEMS OR KYLMCMBEW67.9 Hypothyroidism, unspecifiedComments:RX REVIEWED AND UPDATEDF/U TSH/ FT4H81.13 Benign paroxysmal vertigo, bilateralComments: ULUFTPX45.00 Insomnia, unspecifiedComments:COUNCELLING AND REASSURANCE RELAXATION TECHNIQUES DISCUSSED COUNSELED RE: STRESSORS IN LIFE TYLENOLPM OR MOTRIN PM PRN DUR APXUTBQT81.9 Allergic rhinitis, unspecifiedNew Medication: Loratadine 10 mg - 1 tab by mouth every dayComments:INCREASE PO FLUID USE ANTIHISTAMINE PRN SECOND HAND SMOKING ZQZGWYKKKQ68.9 Atopic dermatitis, unspecifiedNew Medication:Triamcinolone Acetonide 0.5 % - apply to affected area twice a day as neededComments:SKIN CARE INSTRUCTIONS LOTION OR BABY OIL 2- 3 APPLICATION PER DAYUSE MOISTURIZING SOAPAVOID PROLONGED WATER EXPOSUREAVOID USING HOT WATER IN PKXFSJQ69.03 Otalgia, bilateralComments:INCREASE PO FLUIDTYLENOL OR MOTRIN PRNANTIHISTAMINE ZLLKCOIJ92.5 Low back painComments: EXERCISE/HEAT /MESSAGEAVOID HEAVY LIFTING WT LOSSTYLENOL OR MOTRIN PRN DUR OOSADJEC26.33 Obstructive sleep apnea (adult) (pediatric)Comments:CONTINUE WITH CPAPF/U WITH ENT PRNJ32.9 Chronic sinusitis, unspecifiedComments:INCREASE PO FLUID TYLENOL OR MOTRIN PRN USE ANTIHISTAMINE PRNN95.1 Menopausal and female climacteric statesComments:COUNCELLING AND REASSURANCECALCIUM TIXCINIUIT01.83 Other fatigueComments:INCRFEASE PO FLUIDCOUNCELLING AND REASSURANCE RESTF41.9 Anxiety disorder, unspecifiedComments:COUNCELLING AND REASSURANCE RELAXATION TECHNIQUES DISCUSSEDCOUNSELED RE: STRESSORS IN LIFE AVOID ALLENERGY/HIGH CAFFEINE DRINKS DUR SAPVEYAM58.90 Unspecified Eustachian tube disorder, unspecified earComments:ANTIHISTAMINE PRN TYLENOL OR MOTRIN PRN INCREASE PO CRZZTN95.9 Vitamin D deficiency, unspecifiedComments:INCREASE EXPOSURE TO SUNREVIEW OF DIETN20.0 Calculus of kidneyComments:F/U WITH UROLOGY PRND37.8 Neoplasm of uncertain behavior of other specified digestive organsComments:MRA OF ABD. 05/31/19 [id number] Insect bite (nonvenomous) of left forearm, initial encounterNew Medication:Triamcinolone Acetonide 0.5 % - apply to affected area twice a day as neededComments:SKIN CARE INSTRUCTIONS LOTION OR BABY OIL 2-3 APPLICATION PER DAYUSE MOISTURIZING SOAP Functional Status Description No Information Available Mental Status Description No Information Available Referrals Description No Information Available
[2019-08-19 09:42] VITALS: BP 158/89
[2019-08-19] MEDS ORDERED: Acetaminophen TAB* 325 MG PO ONE (10:08)
--- NOTE | 2019-08-19 10:19 | UC ---
Respiratory Complaint HPI - HPI Summary HPI Summary: Pt presents with c/o cough, sob, wheezing, UMANZOR, fever, chills, nausea, vomiting, diarrhea X 8 days. - History of Current Complaint Chief Complaint: UCRespiratory Stated Complaint: ST, COUGH, FEVER, VOMITTING, DIARRHEA Time Seen by Provider: 08/19/19 10:03 Hx Obtained From: Patient ?: No Onset/Duration: Gradual Onset, Lasting Days, Worse Since - onset Timing: Constant Severity Initially: Mild Severity Currently: Severe Pain Intensity: 10 Character: Cough: Productive Aggravating Factors: Exertion, Deep Breaths, Recumbent Position Alleviating Factors: Nothing Associated Signs And Symptoms: Positive: Fever, Chills, Wheezing, URI, Nasal Congestion - Risk Factors Pulmonary Embolism Risk Factors: Negative Cardiac Risk Factors: Negative Pseudomonas Risk Factors: Negative Tuberculosis Risk Factors: Negative - Allergies/Home Medications Allergies/Adverse Reactions: Allergies Allergy/AdvReac Type Severity Reaction Status Date / Time Sulfa (Sulfonamide Allergy Severe Unknown Verified 08/19/19 09:29 Antibiotics) Reaction Details iodine Allergy Unknown Verified 08/19/19 09:29 Reaction Details iodixanol [From Visipaque] Allergy Unknown Verified 08/19/19 09:29 Reaction Details Home Medications: Home Medications Black Cohosh 40 mg PO DAILY 08/19/19 [History Confirmed 08/19/19] Buspirone HCl 15 mg PO BID 08/19/19 [History Confirmed 08/19/19] Pantoprazole TAB * [Protonix TAB*] 40 mg PO DAILY 08/19/19 [History Confirmed ] PMH/Surg Hx/FS Hx/Imm Hx Previously Healthy: Yes Respiratory History: COPD, Asthma Psychological History: Anxiety - Surgical History Surgical History: Yes Surgery Procedure, Year, and Place: GALLBLADDER ,CSECTION [id number],HYSTERECTOMY ,TUBAL; ear tubes; tonsilectomy - Family History Known Family History: Positive: Hypertension, Diabetes, Other - [place] - Social History Occupation: Employed Full-time Lives: With Family Alcohol Use: Occasionally Substance Use Type: None Smoking Status (MU): Never Smoked Tobacco Have You Smoked in the Last Year: No Review of Systems All Other Systems Reviewed And Are Negative: Yes Constitutional: Positive: Fever, Chills, Fatigue Skin: Positive: Negative Eyes: Positive: Negative Respiratory: Positive: Shortness Of Breath, Cough Cardiovascular: Positive: Negative Gastrointestinal: Positive: Negative Genitourinary: Positive: Negative Motor: Positive: Negative Neurovascular: Positive: Negative Musculoskeletal: Positive: Negative Neurological: Positive: Headache Psychological: Positive: Negative Is Patient Immunocompromised?: No Physical Exam Triage Information Reviewed: Yes Appearance: Ill-Appearing Vital Signs: Initial Vital Signs Temp 98 F 08/19/19 09:34 Pulse 87 08/19/19 09:34 Resp 22 08/19/19 09:34 BP 158/89 08/19/19 09:34 Pulse Ox 98 08/19/19 09:34 Vital Signs Reviewed: Yes Eye Exam: Normal ENT: Positive: Nasal congestion Dental Exam: Normal Neck exam: Normal Respiratory: Positive: Decreased breath sounds, Wheezing Cardiovascular Exam: Normal Musculoskeletal Exam: Normal Neurological Exam: Normal Psychological Exam: Normal Skin Exam: Normal Respiratory Course/Dx - Course Course Of Treatment: I discussed viral vs bacterial and pt has pmh of asthma but does not have rescue inhaler. I discussed pt's BP with her and recommended that she f/u with PCP - Differential Dx/Diagnosis Differential Diagnosis/HQI/PQRI: Bronchitis, Pulmonary Embolism Provider Diagnosis: Bronchitis Discharge ED - Sign-Out/Discharge Documenting (check all that apply): Patient Departure All imaging exams completed and their final reports reviewed: No Studies - Discharge Plan Condition: Stable Disposition: HOME Prescriptions: Albuterol HFA INHALER* [Ventolin HFA Inhaler*] 2 puff INH Q4H PRN #1 mdi PRN Reason: Sob/Wheezing Benzonatate CAP* [Tessalon 100 MG CAP*] 100 mg PO Q8H PRN #30 cap PRN Reason: Cough DOXYcycline CAP(*) [DOXYcycline 100MG CAP(*)] 100 mg PO Q12H #20 cap Ondansetron TAB* [Zofran 4 MG Tab*] 4 mg PO Q6H PRN #12 tab PRN Reason: Nausea predniSONE TAB* [Deltasone 20 MG TAB*] 60 mg PO DAILY #12 tab Patient Education Materials: Loperamide (By mouth), Acute Bronchitis (ED), Acute Nausea and Vomiting (ED), Wheezing (ED) Referrals: Ana Maria Cormier MD [Primary Care Provider] - If Needed - Billing Disposition and Condition Condition: STABLE Disposition: Home
== END 2019-08-19 10:38 | disposition home or self-care (01) ==
LOC: UCCORT 09:03
DX: J44.9 Chronic obstructive pulmonary disease, unspecified (principal); F41.9 Anxiety disorder, unspecified; J06.9 Acute upper respiratory infection, unspecified; R11.10 Vomiting, unspecified; R51 Headache; J02.9 Acute pharyngitis, unspecified; R09.81 Nasal congestion; R53.83 Other fatigue; R19.7 Diarrhea, unspecified; Z88.2 Allergy status to sulfonamides; Z88.8 Allergy status to other drugs, medicaments and biological substances; Z79.899 Other long term (current) drug therapy
CPT/HCPCS: 99212; A9270-GY; G0463

== ENCOUNTER 2020-04-09 07:41 | Inpatient (IN) ==
[~2020-04-09 07:41] MED LIST: Buffered Lidocaine 1% SYRIN 1 ml INTRADERM ONE; Heparin 5000 UNITS/ML VIAL(*) 1 ml vial ONE; Lactated Ringers 1000 ml BAG 1,000 ML IV SCH; ceFAZolin 1 GM ADVAN(*) 1 GM ADDV.VIAL IVPB ONE; ceFAZolin 2 GM PREMIX in ORs 2 GM/50 ML BAG ONE
[2020-04-09] MEDS ORDERED: Buffered Lidocaine 1% SYRIN 1 ml INTRADERM ONE (09:07)
[2020-04-09] MEDS ORDERED: Bupivacaine 0.25% EPI 200,000 30 ML SDV ONE ×2 (10:14→11:23)
[2020-04-09] MEDS ORDERED: Methylene Blue 0.5 % 50 MG/10 ML AMP IV ONE (10:14)
[2020-04-09] MEDS ORDERED: fentaNYL 250 mcg/5 ml 50 MCG/ML 5 ml VIAL (250 MCG) ONE (10:36)
[2020-04-09] MEDS ORDERED: Midazolam 2 mg/2 ml VIAL 1 mg/ml 2 ml VIAL (2 mg) ONE (10:36)
[2020-04-09] MEDS ORDERED: Rocuronium 50 mg VIAL 10 mg/ml 5 ml VIAL (50 mg) ONE ×2 (10:36→11:39)
[2020-04-09] MEDS ORDERED: Phenylephrine 40 mcg/mL 10mL (400mcg) SYRINGE ONE (10:37)
[2020-04-09] MEDS ORDERED: Propofol 10 MG/ML 20 ML BTL ONE (10:38)
[2020-04-09] MEDS ORDERED: Ketamine HCL 50 mg/ml 10 ml VIAL (500 MG) ONE (10:40)
[2020-04-09] MEDS ORDERED: Lidocaine 2% PF 5 ML VIAL ONE (10:59)
[2020-04-09] MEDS ORDERED: Dexamethasone IV 4 MG/ML VIAL 1 ml VIAL ONE (11:11)
[2020-04-09] MEDS ORDERED: Ondansetron 4 mg VIAL 2 MG/ML 2 ml VIAL IV PRN ×2 (11:28→13:39)
[2020-04-09] MEDS ORDERED: Naloxone 0.4 mg VIAL 0.4 mg/ml 1 ml VIAL IV PRN (11:28)
[2020-04-09] MEDS ORDERED: HYDROmorphone 1 MG/1 ML SYRINGE IV PRN (11:28)
[2020-04-09] MEDS ORDERED: HYDROmorphone 1 MG/1 ML SYRINGE ONE (11:44)
[2020-04-09] MEDS ORDERED: Ondansetron 4 mg VIAL 2 MG/ML 2 ml VIAL ONE (11:46)
[2020-04-09] MEDS ORDERED: Sugammadex 500 MG/5 ML 5 ml VIAL IV PUSH ONE (11:46)
[2020-04-09] MEDS ORDERED: EPHEDrine (Pressors) 50 MG/ML VIAL ONE (11:54)
[2020-04-09] MEDS ORDERED: Labetalol IV 5 MG/ML 20 ml VIAL ONE (13:47)
[2020-04-09] MEDS ORDERED: HYDROmorphone 0.5 MG/0.5 ML SYRINGE IV SLOW PU PRN (13:48)
[2020-04-09] MEDS ORDERED: diPHENhydraMINE IV 50 MG/ML 1 ml VIAL (BENADRYL) SLOW PUSH PRN (13:48)
[2020-04-09] MEDS ORDERED: LORazepam 2 mg VIAL 1 ml IV PUSH PRN (13:53)
[2020-04-09] MEDS ORDERED: Lorazepam PYXIS KEY PRN (13:53)
[2020-04-09] MEDS ORDERED: Metoprolol Tartrate 5 mg VIAL 5 ml VIAL (1 mg/ml) IV PRN (13:54)
[2020-04-09] MEDS: Labetalol IV 5 MG/ML 20 ml VIAL IV PUSH PRN ×5 (13:54→14:45)
[2020-04-09] MEDS ORDERED: fentaNYL 100 mcg/2 ml 50 MCG/ML VIAL ONE (14:21)
[2020-04-09] MEDS: fentaNYL 100 mcg/2 ml 50 MCG/ML VIAL IV PRN ×4 (14:22→14:48)
[2020-04-09] MEDS ORDERED: hydrALAZINE 20 mg/ml 1 ML Vial IV ONE (14:55)
[2020-04-09] MEDS ORDERED: hydrALAZINE 20 mg/ml 1 ML Vial IV IV SLOW PU ONE (14:55)
[2020-04-09] MEDS ORDERED: Metoprolol Tartrate 5 mg VIAL 5 ml VIAL (1 mg/ml) IV ONE (15:28)
[2020-04-09] MEDS ORDERED: Metoprolol Tartrate 5 mg VIAL 5 ml VIAL (1 mg/ml) ONE (15:28)
[2020-04-09] MEDS ORDERED: Albuterol HFA INHALER 8 gm MDI INH PRN (16:21)
[2020-04-09] MEDS: HYDROmorphone 1 MG/1 ML SYRINGE IV SLOW PU PRN (18:22)
[2020-04-09] MEDS: Famotidine IV 10 MG/ML 2 ml VIAL (20 mg) IV SLOW PU SCH (21:37)
[2020-04-09] MEDS: Heparin 5000 UNITS/ML VIAL(*) 1 ml vial SUBCUT SCH (21:37)
[2020-04-10] MEDS: Lactated Ringers 1000 ml BAG 1,000 ML IV SCH ×2 (00:06→07:40)
[2020-04-10] MEDS: HYDROmorphone 1 MG/1 ML SYRINGE IV SLOW PU PRN (03:29)
[2020-04-10 04:59] LABS: ABS Monocytes 0.8 10^3/ul (0-0.8); Eosinophil % 0.1 %; Hematocrit 35 % (35-47); Hemoglobin 11.9 g/dL (12.0-16.0); Lymphocyte % 26.3 %; Mean Corpuscular HGB Conc 34 g/dL (31-36); Mean Corpuscular Hemoglobin 30 pg (27-31); Mean Corpuscular Volume 90 fL (80-97); Mean Platelet Volume 8.6 fL (7.4-10.4); Platelet Count 324 10^3/uL (150-450); Red Blood Count 3.94 10^6 /uL (3.70-4.87); Red Cell Distribution Width 14 % (10-15); White Blood Count 7.7 10^3/uL (3.5-10.8)
[2020-04-10 05:06] LABS: INR 1.15 (0.82-1.09)
[2020-04-10 05:16] LABS: BUN/Creatinine Ratio 21.8 (8-20); Calcium 8.7 mg/dL (8.6-10.3); EGFR African American 93.1 (>60); Potassium 3.8 mmol/L (3.5-5.0)
[2020-04-10] MEDS: Heparin 5000 UNITS/ML VIAL(*) 1 ml vial SUBCUT SCH ×3 (05:49→22:15)
[2020-04-10] MEDS ORDERED: Mometasone/Formoter 200/5 MDI INH PRN (08:34)
[2020-04-10] MEDS: Famotidine IV 10 MG/ML 2 ml VIAL (20 mg) IV SLOW PU SCH ×2 (09:43→22:17)
[2020-04-10] MEDS: HYDROcodone/ACET. 7.5/325 LIQ 15 ML UDC PO PRN ×2 (14:17→18:23)
[2020-04-10] MEDS: D5W 1/2 NS KCl 20 meq 1000 ml 1,000 ML IV SCH (15:39)
[2020-04-11] MEDS: D5W 1/2 NS KCl 20 meq 1000 ml 1,000 ML IV SCH (03:26)
[2020-04-11] MEDS: Heparin 5000 UNITS/ML VIAL(*) 1 ml vial SUBCUT SCH (06:13)
[2020-04-11] MEDS: Famotidine IV 10 MG/ML 2 ml VIAL (20 mg) IV SLOW PU SCH (07:30)
[2020-04-11 07:53] VITALS: BP 147/75
== END 2020-04-11 10:30 | disposition home or self-care (01) | DRG 403 ==
LOC: AA 07:41 → SSU 16:03
PROVIDERS: ADMIT Surgery; ATTEND Surgery